=== PATIENT | male | born 1985 | race Caucasian/White ===

== ENCOUNTER 2016-08-02 10:56 | Observation (INO) | payer OTHER ==
[~2016-08-02] VITALS: Ht 182.9 cm; Wt 104.3 kg
[~2016-08-02 10:56] MED LIST: ASPI325T8 PO; CARV3.12 PO; DILT120C2 PO; FAMO-63 PO; HYDR25TA PO
[2016-08-02] MEDS ORDERED: NITROGLYCERIN SUBLINGUAL 0.4 MG BOTTLE OF 25. SL PRN (11:00)
[2016-08-02] MEDS ORDERED: MORPHINE SULFATE 2 MG/ML DISP.SYRIN. IV/SQ PRN (11:00)
--- NOTE | 2016-08-02 11:01 | PHYS DOC ---
Adult General HPI HPI Patient is a 31 year old who presents with chest discomfort. He states this all started a few days ago when he had strep throat back to back and then yesterday was seen by [facility] he thought he had pneumonia per minute Levaquin, Tessalon Perles and albuterol inhaler. He states overnight his symptoms got worse. He states he has a burning sensation in his chest and he's having palpitations that occur about every 25 beats were hurts. He did also feels nauseated. He denies any shortness of breath fevers or chills. He has a past medical history of aortic aneurysm with stent repair and open heart surgery. He also has a history of A. fib and is on Procardia and followed by Dr. Caba. Review of Systems Review of Systems Constitutional: Denies fever or chills [] Eyes: Denies change in visual acuity, redness, or eye pain [] HENT: Denies nasal congestion or sore throat [] Respiratory: Denies cough or shortness of breath [] Cardiovascular: No additional information not addressed in HPI [] GI: Denies abdominal pain, nausea, vomiting, bloody stools or diarrhea [] : Denies dysuria or hematuria [] Musculoskeletal: Denies back pain or joint pain [] Integument: Denies rash or skin lesions [] Neurologic: Denies headache, focal weakness or sensory changes [] Endocrine: Denies polyuria or polydipsia [] Current Medications Current Medications Current Medications Medications (Trade) Dose Ordered Sig/Iker Start Time Stop Time Status Last Admin Dose Admin Fentanyl Citrate (Fentanyl 2ml Vial) 50 mcg PRN Q1HR PRN 08/02/16 14:30 08/03/16 14:29 Iohexol (Omnipaque 300 Mg/ml) 75 ml 1X ONCE 08/02/16 14:30 08/02/16 14:31 DC 08/02/16 14:33 75 ML Morphine Sulfate 2 mg PRN Q15MIN PRN 08/02/16 11:00 08/03/16 10:59 UNV Nitroglycerin (Nitrostat) 0.4 mg PRN Q5MIN PRN 08/02/16 11:00 08/03/16 10:59 08/02/16 13:28 0.4 MG Ondansetron HCl (Zofran) 4 mg PRN Q8HRS PRN 08/02/16 14:30 08/03/16 14:29 Allergies Allergies Allergies Coded Allergies Type Severity Reaction Last Updated Verified morphine Allergy Intermediate 08/02/16 Yes Physical Exam Physical Exam Constitutional: Well developed, well nourished, no acute distress, non-toxic appearance. [] HENT: Normocephalic, atraumatic, bilateral external ears normal, oropharynx moist, no oral exudates, nose normal. [] Eyes: PERRLA, EOMI, conjunctiva normal, no discharge. [] Neck: Normal range of motion, no tenderness, supple, no stridor. [] Cardiovascular:Heart rate regular rhythm, no murmur [] Lungs & Thorax: Bilateral breath sounds clear to auscultation [] Abdomen: Bowel sounds normal, soft, no tenderness, no masses, no pulsatile masses. [] Skin: Warm, dry, no erythema, no rash. [] Back: No tenderness, no CVA tenderness. [] Extremities: No tenderness, no cyanosis, no clubbing, ROM intact, no edema. [] Neurologic: Alert and oriented X 3, normal motor function, normal sensory function, no focal deficits noted. [] Psychologic: Affect normal, judgement normal, mood normal. [] Current Patient Data Vital Signs Vital Signs Date Time Temp Pulse Resp B/P (MAP) Pulse Ox O2 Delivery O2 Flow Rate FiO2 08/02/16 14:10 81 12 109/76 (87) 97 Room Air 08/02/16 13:42 98.1 98.1 Lab Values Laboratory Tests Test 08/02/16 11:20 08/02/16 13:12 White Blood Count 10.5 x10^3/uL (4.0-11.0) Red Blood Count 5.12 x10^6/uL (4.30-5.70) Hemoglobin 14.5 g/dL (13.0-17.5) Hematocrit 42.4 % (39.0-53.0) Mean Corpuscular Volume 83 fL (79-100) Mean Corpuscular Hemoglobin 28 pg (25-35) Mean Corpuscular Hemoglobin Concent 34 g/dL (31-37) Red Cell Distribution Width 12.7 % (11.5-14.5) Platelet Count 216 x10^3/uL (140-400) Neutrophils (%) (Auto) 78 % (31-73) H Lymphocytes (%) (Auto) 15 % (24-48) L Monocytes (%) (Auto) 6 % (0-9) Eosinophils (%) (Auto) 0 % (0-3) Basophils (%) (Auto) 0 % (0-3) Neutrophils # (Auto) 8.2 x10^3uL (1.8-7.7) H Lymphocytes # (Auto) 1.6 x10^3/uL (1.0-4.8) Monocytes # (Auto) 0.6 x10^3/uL (0.0-1.1) Eosinophils # (Auto) 0.0 x10^3/uL (0.0-0.7) Basophils # (Auto) 0.0 x10^3/uL (0.0-0.2) Prothrombin Time 12.7 SEC (11.7-14.0) Prothrombin Time INR 1.0 (0.8-1.1) Sodium Level 138 mmol/L (136-145) Potassium Level 4.2 mmol/L (3.5-5.1) Chloride Level 103 mmol/L (98-107) Carbon Dioxide Level 26 mmol/L (21-32) Anion Gap 9 (6-14) Blood Urea Nitrogen 10 mg/dL (8-26) Creatinine 0.8 mg/dL (0.7-1.3) Estimated GFR (Cockcroft-Gault) 112.8 Glucose Level 108 mg/dL (70-99) H Calcium Level 9.3 mg/dL (8.5-10.1) Magnesium Level 1.9 mg/dL (1.8-2.4) Total Bilirubin 1.0 mg/dL (0.2-1.0) Direct Bilirubin 0.2 mg/dL (0.0-0.2) Aspartate Amino Transferase (AST) 10 U/L (15-37) L Alanine Aminotransferase (ALT) 21 U/L (16-63) Alkaline Phosphatase 75 U/L (46-116) Creatine Kinase 33 U/L (39-308) L Creatine Kinase MB (Mass) < 0.5 ng/mL (0.0-3.6) Creatine Kinase MB Relative Index % (0-4) Troponin I Quantitative < 0.017 ng/mL (0.000-0.055) SB-Yfx-P-Type Natriuretic Peptide 233 pg/mL (0-124) H Total Protein 7.4 g/dL (6.4-8.2) Albumin 3.9 g/dL (3.4-5.0) Lipase 84 U/L (73-393) Urine Color Yellow Urine Clarity Clear Urine pH 7.0 Urine Specific [place] 1.015 Urine Protein Negative mg/dL (NEG-TRACE) Urine Glucose (UA) Negative mg/dL (NEG) Urine Ketones (Stick) Negative mg/dL (NEG) Urine Blood Negative (NEG) Urine Nitrite Negative (NEG) Urine Bilirubin Negative (NEG) Urine Urobilinogen Dipstick 0.2 mg/dL (0.2 mg/dL) Urine Leukocyte Esterase Negative (NEG) Urine RBC 0 /HPF (0-2) Urine WBC 0 /HPF (0-4) Urine Squamous Epithelial Cells None /LPF Urine Bacteria 0 /HPF (0-FEW) Urine Mucus Slight /LPF Urine Opiates Screen Neg (NEG) Urine Methadone Screen Neg (NEG) Urine Barbiturates Neg (NEG) Urine Phencyclidine Screen Neg (NEG) Urine Amphetamine/Methamphetamine Neg (NEG) Urine Benzodiazepines Screen Neg (NEG) Urine Cocaine Screen Neg (NEG) Urine Cannabinoids Screen Neg (NEG) Urine Ethyl Alcohol Neg (NEG) Laboratory Tests 08/02/16 11:20 Laboratory Tests 08/02/16 11:20 EKG EKG EKG shows sinus rhythm with rate of [address] elevations, normal axis, occasional PAC noted. Radiology/Procedures Radiology/Procedures [facility] [address] [place] [address] IMAGING REPORT Signed PATIENT: MAMTA SOFIA ACCOUNT: [id number] : 1985 LOCATION: ER AGE: 31 SEX: M EXAM STATUS: PRE ER ORD. PHYSICIAN: JUAREZ POLANCO MD REASON: chest pain PROCEDURE: PORTABLE CHEST 1V Indication: Chest pain. Time of exam 11 0 7:00 AM The heart size is normal. There are changes of median sternotomy. The lungs are clear. The pulmonary vascularity is normal. No infiltrate or failure is detected. No effusion or pneumothorax is identified. Impression: No acute cardiopulmonary process is detected. DICTATED and SIGNED BY: GAURANG SALGADO MD DATE: 08/02/16 1108 CC: KISHA DIAZ DO; JUAREZ POLANCO MD ~ Impressions: Chest pain Course & Med Decision Making Course & Med Decision Making Pertinent Labs and Imaging studies reviewed. (See chart for details) Patient EKG and labs don't show any acute abdomen. CT Angio is pending at this time, to rule out PE. He is being admitted to the hospitalist with interim orders written and consult to cardiology has been placed. Spoke with June. Khan Disclaimer Bill Disclaimer This electronic medical record was generated, in whole or in part, using a voice recognition dictation system. Departure Departure Impression: Primary Impression: Chest pain Disposition: ADMITTED INPATIENT Admitting Physician: Briseida Moore Condition: STABLE Referrals: KISHA DIAZ DO (PCP) Problem Qualifiers Primary Impression: Chest pain Chest pain type: unspecified Qualified Codes: R07.9 - Chest pain, unspecified JUAREZ POLANCO MD Aug 02, 2016 11:01
--- NOTE | 2016-08-02 11:12 | RAD ---
Indication: Chest pain. Time of exam 11 0 7:00 AM The heart size is normal. There are changes of median sternotomy. The lungs are clear. The pulmonary vascularity is normal. No infiltrate or failure is detected. No effusion or pneumothorax is identified. Impression: No acute cardiopulmonary process is detected.
[2016-08-02 11:37] LABS: BASO % 0 % (0-3); EOS % 0 % (0-3); HEMATOCRIT 42.4 % (39.0-53.0); HEMOGLOBIN 14.5 g/dL (13.0-17.5); LYMPH # 1.6 x10^3/uL (1.0-4.8); LYMPH % 15 % (24-48); MEAN CORPUSCULAR HEMOGLOBIN 28 pg (25-35); MEAN CORPUSCULAR HGB CONC 34 g/dL (31-37); MEAN CORPUSCULAR VOLUME 83 fL (79-100); MONO % 6 % (0-9); NEUT % 78 % (31-73); PLATELET COUNT 216 x10^3/uL (140-400); RED BLOOD COUNT 5.12 x10^6/uL (4.30-5.70); RED CELL DISTRIBUTION WIDTH 12.7 % (11.5-14.5); WHITE BLOOD COUNT 10.5 x10^3/uL (4.0-11.0)
--- NOTE | 2016-08-02 11:48 | EKG ---
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
[2016-08-02 11:50] LABS: CALCIUM 9.3 mg/dL (8.5-10.1); CREATININE 0.8 mg/dL (0.7-1.3); GFR 112.8; POTASSIUM 4.2 mmol/L (3.5-5.1)
[2016-08-02 11:52] LABS: PROTHROMBIN TIME PATIENT 12.7 SEC (11.7-14.0)
[2016-08-02 11:55] LABS: ALBUMIN 3.9 g/dL (3.4-5.0); DIRECT BILIRUBIN 0.2 mg/dL (0.0-0.2); MAGNESIUM 1.9 mg/dL (1.8-2.4); TOTAL PROTEIN 7.4 g/dL (6.4-8.2)
[2016-08-02 12:06] LABS: CKMB MASS < 0.5 ng/mL (0.0-3.6); CREATINE KINASE 33 U/L (39-308)
[2016-08-02] MEDS ORDERED: ONDANSETRON PF 4 MG/2 ML VIAL. IV ONE (13:00)
[2016-08-02 13:24] LABS: BILIRUBIN,URINE NEGATIVE (NEG); GLUCOSE,URINE NEGATIVE (NEG); NITRITE,URINE NEGATIVE (NEG); PROTEIN,URINE NEGATIVE (NEG-TRACE); UROBILINOGEN,URINE 0.2 mg/dL (0.2 mg/dL)
[2016-08-02 13:27] LABS: BARBITURATES NEG (NEG); BENZODIAZEPINES NEG (NEG); CANNABINOIDS NEG (NEG); COCAINE NEG (NEG); METHADONE NEG (NEG); OPIATES NEG (NEG); PHENCYCLIDINE NEG (NEG)
[2016-08-02 13:35] LABS: BACTERIA,URINE 0 /HPF (0-FEW); RBC,URINE 0 /HPF (0-2); WBC,URINE 0 /HPF (0-4)
[2016-08-02] MEDS: fentaNYL PF VIAL 100 MCG/2 ML VIAL IV PRN ×4 (14:05→20:12)
[2016-08-02] MEDS ORDERED: IOHEXOL 300 MG/ML 75 ML VIAL IV ONE (14:30)
--- NOTE | 2016-08-02 14:36 | ACF ---
Admit Criteria Forms Admit Criteria Forms Admit Criteria Forms CHEST PAIN Clinical Indications for Admission to Inpatient Care (Place 'X' for any and all applicable criteria): Admission is indicated for chest pain and ANY ONE of the following(1)(2)(3)(4)(5 ): [ ]I. Angina with acute coronary syndrome (Also use Myocardial Infarction or Angina guideline) [ ]II. Hemodynamic instability [ ]III. Angina needing acute intervention as indicated by ALL of the following( 11)(12): [ ]a) Unstable angina is present as indicated by angina that is ANY ONE of the following: [ ]i) New onset [ ]ii) Nocturnal [ ]iii) Prolonged at rest [ ]iv) Progressive [ ]b) Angina warrants acute intervention as indicated by ANY ONE of the following: [ ]i) Recurrent angina (e.g, not responding as previously to treatment) [ ]ii) Angina at rest or with low-level activities despite initial medical therapy [ ]iii) New or presumably new ST-segment depression on ECG [ ]iv) Signs or symptoms of heart failure (eg, dyspnea, pulmonary edema) [ ]v) New or worsening mitral regurgitation [ ]vi) Hemodynamic instability [ ]vii) Dangerous arrhythmia (eg, sustained ventricular tachycardia) [ ]viii) History of percutaneous coronary intervention within 6 months [ ]ix) History of coronary artery bypass graft surgery [ ]x) KATHLEEN risk score of 2 or greater[A] [ ]xi) History of Diabetes(14) [ ]xii) High-risk cardiac ischemia findings on noninvasive testing (e.g, echocardiogram, treadmill testing, nuclear scan) [ ]xiii) Chronic renal insufficiency (ie, estimated GFR less than 60 mL/min/1.732m) [ ]xiv) Left ventricular ejection fraction less than 40% [X]IV. Evidence of MT (eg, cardiac biomarkers positive, ST-segment elevation on ECG) also use Myocardial Infarction Criteria Form. [ ]V. Pulmonary edema [ ]. Respiratory distress [ ]VII. Chest pain indicative of serious diagnosis other than coronary artery disease (eg, aortic dissection) [ ]VIII. Contraindications and/or Inappropriate clinical situations for Observational Care in patients with Chest Pain, when ANY ONE of the following is required: [ ]a) Patient with risk factor for pulmonary embolism, acute coronary syndrome and myocardial infarction (18) [ ]b) Patient with Pulmonary embolism require an average LOS of 4.3 days, therefore emergency department observation management is inappropriate 18,23 [ ]c) Painful condition/s in the elderly, have the highest rate of recidivism after emergency department observation management (10.8%) 20,21,22 [ ]d) Elevated cardiac biomarker requires intensive and exhaustive care (19) [ ]IX. General contraindications and/or Inappropriate clinical situations for Observational Care in patients with Chest Pain, when ANY ONE of the following is required: [ ]a) Prediction of prolongation of LOS based on ANY ONE of the following may be considered as a contraindication for observational care 2, 3, 4, 5, 6, 7, 8, 9, 10, 11 [ ]i) Age > 65 yrs. [ ]ii) Patient arriving by ambulance [ ]iii) Patient with high acuity [ ]iv) Patient requiring vital sign monitoring [ ]v) Patient on IV medication [ ]b) Systolic blood pressures 180mmHg 3,12 [ ]c) Patient with altered mental status including delirium and other alteration of consciousness, (3) [ ]d) Patient whose discharge disposition will be to a correction home or rehabilitation home should not be managed in Emergency Department Observation Unit. CMS rule requires 3 days hospital stay before such placement. 3,13 [ ]e) Patient with failure to thrive due to broad array of etiologies 3,16,17 [ ]f) Inability to ambulate 3,14 Extended stay beyond goal length of stay may be needed for (1)(28): [ ]a) Specific condition diagnosed after evaluation (eg, pulmonary embolism, aortic dissection) [ ]b) Unstable angina [ ]c) Continued suspicion of acute coronary syndrome with inability to complete needed cardiac evaluation (eg, patient clinically unable to undergo stress testing) [ ]d) Myocardial infarction (Contents from ANGINA and CHEST PAIN clinical indications for admission to inpatient care have been integrated in this form) The original [employer] content created by [employer] has been revised. The portions of the content which have been revised are identified through the use of italic text or in bold, and [employer] [facility] [employer] has neither reviewed nor approved the modified material. All other unmodified content is copyright [employer]. Please see references footnoted in the original [employer] edition 2016 NEHA TANNER Aug 02, 2016 14:36
--- NOTE | 2016-08-02 14:44 | PDOC2 ---
JORGE LUIS DANIELSON RADIOLOGY THERAPIST 08/02/16 1444: CARDIAC CONSULT DATE OF CONSULT Date of Consult DATE: 08/02/16 TIME: 14:36 REASON FOR CONSULT Reason for Consult: Chest pain REFERRING PHYSICIAN Referring Physician: Surjit SOURCE Source: Chart review, Patient HISTORY OF PRESENT ILLNESS HISTORY OF PRESENT ILLNESS This is a pleasant 31 yo male admitted for complains of chest pain. Reports that late June she was noted with positive strep throat, with fever at [facility]. She was given about 10 days worth of PCN and only took 6 days of it since he felt better. He then went to his PCP because his symptoms were back and was having fever as well. His strep test was negative at that time but given his bicuspid valve and hx of aortic root/valve repair, he was given bicilin shot. It was noted that steroid was recommended at that time but did not get started or nonen was filled accdg to him. In the last few days he has been having more skipping beats and also has been having frequent coughing to a point that when he coughs or take a deep breath breath it hurts his anterior chest and starts in the middle and fans out.He then went back to [facility] and was given cough medicine and levaquin. It was burning sensation and actually was a little better she he got started on Tessalon pearls. Overnight he has been feeling anxious, verbalized some chills in the last few days but no documented fever. This morning he woke up and felt lightheaded. He also has been having some nausea. He also verbalized that his chest hurts when has the skipping beats. Positional changes does not help. To date no analgesic has been taken except when in ED. Currently he is quite anxious and asking for some medications for complete relief of his discomfort. Denies any orthopnea, SOA. He ahs been complaint with his ASA and cardizem. He is significant for PAFIB as well noted last yr and has been seen in our office as well as with EP. PAST MEDICAL HISTORY Past Medical History Cardiovascular: aortic root dilatation, mild with bicuspid valve, AFIB Pulmonary: No pertinent hx CENTRAL NERVOUS SYSTEM: Other (No pertinent history) GI: GERD Heme/Onc: No pertinent hx Hepatobiliary: No pertinent hx Psych: No pertinent hx Musculoskeletal: Other (denies) Rheumatologic: No pertinent hx Infectious disease: No pertinent history ENT: Recent strep throat Renal/: No pertinent hx Endocrine: Thyroid nodule Dermatology: No pertinent hx PAST SURGICAL HISTORY Past Surgical History aortic root graft placement with possible , possible concomitant AV repair at that time 2002 FAMILY HISTORY Family History Coronary Artery Disease (grandmother and grandfather also with AFIB ) SOCIAL HISTORY Smoke: No ALCOHOL: none Drugs: None Lives: with Family CURRENT MEDICATIONS CURRENT MEDICATIONS Current Medications Medications (Trade) Dose Ordered Sig/Iker Route PRN Reason Start Time Stop Time Status Last Admin Dose Admin Nitroglycerin (Nitrostat) 0.4 mg PRN Q5MIN PRN SL CP RATING > 1/10 08/02/16 11:00 08/03/16 10:59 08/02/16 13:28 Ondansetron HCl (Zofran) 4 mg 1X ONCE IV 08/02/16 13:00 08/02/16 13:06 DC 08/02/16 14:03 Fentanyl Citrate (Fentanyl 2ml Vial) 50 mcg PRN Q15MIN PRN IV PAIN GREATER THAN 3/10 08/02/16 13:00 08/03/16 12:59 08/02/16 14:05 Iohexol (Omnipaque 300 Mg/ml) 75 ml 1X ONCE IV 08/02/16 14:30 08/02/16 14:31 DC 08/02/16 14:33 ALLERGIES ALLERGIES: Coded Allergies: morphine (Verified Allergy, Intermediate, 08/02/16) ROS Review of System 14 point ROS evaluated with pertinent positives noted per HPI PHYSICAL EXAM General: Alert, Oriented X3, Cooperative, mild distress HEENT: Atraumatic, Mucous membr. moist/pink Lungs: Clear to auscultation, Normal air movement Heart: Regular rate (SR with PAC), Normal S1, Normal S2, Other (diffuse systolic murmur 4/6) Abdomen: Soft, No tenderness Extremities: No cyanosis, No edema Skin: No breakdown, No significant lesion Neuro: Normal speech, Sensation intact Psych/Mental Status: Mental status NL, Other (anxious) MUSCULOSKELETAL: Full range of motion without pain VITALS VITALS Vital Signs Date Time Temp Pulse Resp B/P (MAP) Pulse Ox O2 Delivery O2 Flow Rate FiO2 08/02/16 14:10 81 12 109/76 (87) 97 Room Air 08/02/16 13:42 98.1 98.1 LABS Lab: Laboratory Tests Test 08/02/16 11:20 08/02/16 13:12 White Blood Count 10.5 x10^3/uL (4.0-11.0) Red Blood Count 5.12 x10^6/uL (4.30-5.70) Hemoglobin 14.5 g/dL (13.0-17.5) Hematocrit 42.4 % (39.0-53.0) Mean Corpuscular Volume 83 fL (79-100) Mean Corpuscular Hemoglobin 28 pg (25-35) Mean Corpuscular Hemoglobin Concent 34 g/dL (31-37) Red Cell Distribution Width 12.7 % (11.5-14.5) Platelet Count 216 x10^3/uL (140-400) Neutrophils (%) (Auto) 78 % (31-73) Lymphocytes (%) (Auto) 15 % (24-48) Monocytes (%) (Auto) 6 % (0-9) Eosinophils (%) (Auto) 0 % (0-3) Basophils (%) (Auto) 0 % (0-3) Neutrophils # (Auto) 8.2 x10^3uL (1.8-7.7) Lymphocytes # (Auto) 1.6 x10^3/uL (1.0-4.8) Monocytes # (Auto) 0.6 x10^3/uL (0.0-1.1) Eosinophils # (Auto) 0.0 x10^3/uL (0.0-0.7) Basophils # (Auto) 0.0 x10^3/uL (0.0-0.2) Prothrombin Time 12.7 SEC (11.7-14.0) Prothromb Time International Ratio 1.0 (0.8-1.1) Sodium Level 138 mmol/L (136-145) Potassium Level 4.2 mmol/L (3.5-5.1) Chloride Level 103 mmol/L (98-107) Carbon Dioxide Level 26 mmol/L (21-32) Anion Gap 9 (6-14) Blood Urea Nitrogen 10 mg/dL (8-26) Creatinine 0.8 mg/dL (0.7-1.3) Estimated GFR (Cockcroft-Gault) 112.8 Glucose Level 108 mg/dL (70-99) Calcium Level 9.3 mg/dL (8.5-10.1) Magnesium Level 1.9 mg/dL (1.8-2.4) Total Bilirubin 1.0 mg/dL (0.2-1.0) Direct Bilirubin 0.2 mg/dL (0.0-0.2) Aspartate Amino Transf (AST/SGOT) 10 U/L (15-37) Alanine Aminotransferase (ALT/SGPT) 21 U/L (16-63) Alkaline Phosphatase 75 U/L (46-116) Creatine Kinase 33 U/L (39-308) Creatine Kinase MB (Mass) < 0.5 ng/mL (0.0-3.6) Creatine Kinase MB Relative Index % (0-4) Troponin I Quantitative < 0.017 ng/mL (0.000-0.055) ZH-Vhw-C-Type Natriuretic Peptide 233 pg/mL (0-124) Total Protein 7.4 g/dL (6.4-8.2) Albumin 3.9 g/dL (3.4-5.0) Lipase 84 U/L (73-393) Urine Color Yellow Urine Clarity Clear Urine pH 7.0 Urine Specific [place] 1.015 Urine Protein Negative mg/dL (NEG-TRACE) Urine Glucose (UA) Negative mg/dL (NEG) Urine Ketones (Stick) Negative mg/dL (NEG) Urine Blood Negative (NEG) Urine Nitrite Negative (NEG) Urine Bilirubin Negative (NEG) Urine Urobilinogen Dipstick 0.2 mg/dL (0.2 mg/dL) Urine Leukocyte Esterase Negative (NEG) Urine RBC 0 /HPF (0-2) Urine WBC 0 /HPF (0-4) Urine Squamous Epithelial Cells None /LPF Urine Bacteria 0 /HPF (0-FEW) Urine Mucus Slight /LPF Urine Opiates Screen Neg (NEG) Urine Methadone Screen Neg (NEG) Urine Barbiturates Neg (NEG) Urine Phencyclidine Screen Neg (NEG) Urine Amphetamine/Methamphetamine Neg (NEG) Urine Benzodiazepines Screen Neg (NEG) Urine Cocaine Screen Neg (NEG) Urine Cannabinoids Screen Neg (NEG) Urine Ethyl Alcohol Neg (NEG) IMAGES IMAGES IMPRESSION CTA ABD/pelvis/chest - Mediastinal wires are present. There are postsurgical changes of the chest, probably indicating ascending thoracic aortic repair. - There are 2 fairly regular circumferential densities involving the ascending thoracic aorta which may be extent of radio-opaque markers of ascending thoracic aortic repair. These do not have typical appearance of aortic dissection, although small focal recommend clinical correlation. - It is thought that the [place] aortic valve is present and demonstrates calcification. - Descending thoracic aorta and abdominal aorta are without evidence of dissection. - Trace bilateral pleural effusions. - Thyroid nodule. DATE: 10/19/152047 ECHOCARDIOGRAM ECHOCARDIOGRAM <Conclusion> TTE Left ventricle systolic function is normal. The Ejection Fraction is 60-65%. There is normal LV segmental wall motion. The aortic valve is tricuspid. There is an echogenic line noted along the right and non-coronary cusp suggestive of prior repair but partial fusion cannot be excluded on this surface study. Doppler and Color Flow revealed mild aortic regurgitation. Doppler and Color Flow revealed mild mitral regurgitation. Suggest JANNETTE for further evaluation. DATE: 10/20/15 1030 <Conclusion> JANNETTE The Ejection Fraction is 60-65%. There is normal LV segmental wall motion. The aortic valve is bicuspid. There is a calcified area noted at the posterior fusion point of the bicuspid valve. Doppler and Color Flow revealed mild aortic regurgitation. There is mild valvular aortic stenosis. Peak gradient of 42 mm Hg with mean gradient of 24 mm Hg. The ascending aorta is normal in size. There is a suture line noted in the proximal ascending aorta from prior repair. DATE: 10/21/15 1237 ASSESSMENT/PLAN ASSESSMENT/PLAN 1. Atypical chest pain: DOubt ACS. initial troponin normal, EKG SR with PACs otherwise no acute changes. CTA negative for acute changes. Possible costochondritis. 2. Recent strep throat: multiple outpt clinic visit with noted initially incomplete Abx treatment then bicilin shot then recently given levaquin. Remains to have episodes of chills. 3. PAFIB: presently SR with PACs. Seen by EP 02/2016 and no recommendation for any ablation at that time 4. Presyncope: suspect anxiety induced, possible inadequate po hydration. 5. Hx of bicuspid valve/aortic dilatation with mild /AI: repair in 2002. 6. Anxiety: per PCP 7. GERD Recommendations 1. Reevaluate valves/pericardium/aortic root via TTE today. ESR. Monitor tele overnight 2. Would recommend ID consult 3. Solumedrol IV x1, Transdermal lidocaine patch to chest. PPI 4. Ibuprofen PRN 5. ECASA 81 mg and cardizem 120 mg CD (home dose). Start IVF. Problems: KEYSHAWN CABEZAS MD 08/02/162122: CARDIAC CONSULT ALLERGIES ALLERGIES: Coded Allergies: morphine (Verified Allergy, Intermediate, 08/02/16) ASSESSMENT/PLAN ASSESSMENT/PLAN Pt. seen and examined. Agree with above RESEARCH CLERK note with following changes/ comments. 31 y.o well known to me from prior admission and office. He has very atypical chest pain which he clear associates with PAC's and PVC's. BP low and therefore, unable to uptitrate meds. Will stop cardizem. Start low dose metoprol in a.m.. Give flecainide tonight and in a.m. Monitor closely for now. No need from our perspective for ID consult. Discussed with Dr. Moore. Thanks for consult. Problems: JORGE LUIS DANIELSON APRN Aug 02, 2016 14:44 KEYSHAWN CABEZAS MD Aug 02, 2016 21:23
--- NOTE | 2016-08-02 15:21 | RAD ---
Indication: Chest pain and shortness of breath. Axial imaging through the chest was performed after the administration of intravenous contrast and utilizing the CT angiography protocol. Multiplanar, 3-D and MIP reformations were also performed. Correlation is made with prior CT from 10/19/2015. Postop changes of median sternotomy are noted. The thoracic aorta appears to be stable in caliber. No dissection is identified. Central pulmonary arteries are unremarkable. No pericardial or pleural fluid is detected. No axillary lymphadenopathy is identified. No definite hilar or mediastinal lymphadenopathy is detected. No parenchymal infiltrate, nodule or mass is identified. Upper abdomen is unremarkable. Impression: Stable CT of the chest when compared with exam from 10/19/2015. No acute feature is detected. PQRS Compliance Statement: One or more of the following individualized dose reduction techniques were utilized for this examination: 1. Automated exposure control 2. Adjustment of the mA and/or kV according to patient size 3. Use of iterative reconstruction technique
[2016-08-02] MEDS ORDERED: methylPREDNISolone SOD SUCC PF 125 MG/2 ML VIAL. IV ONE (15:30)
[2016-08-02] MEDS: IBUPROFEN 400 MG TABLET. PO PRN (15:53)
[2016-08-02] MEDS: PANTOPRAZOLE 40 MG TABLET.DR. PO SCH (15:53)
[2016-08-02] MEDS: LIDOCAINE (700MG/PATCH) PATCH. TD SCH (15:54)
[2016-08-02] MEDS: ASPIRIN ENTERIC COATED 81 MG TABLET.DR. PO SCH (15:54)
[2016-08-02 16:00] VITALS: BP 104/69
[2016-08-02] MEDS ORDERED: IV NORMAL SALINE 1000ML BAG 1,000 ML IV ONE (16:00)
[2016-08-02] MEDS ORDERED: FAMOTIDINE 20 MG/2 ML VIAL IVP ONE (16:30)
--- NOTE | 2016-08-02 16:49 | PDOC1 ---
History and Physical Date of Admission Date of Admission DATE: 08/02/16 TIME: 16:47 Identification/Chief Complaint Chief Complaint chest pain Problems: Source Source: Chart review, Patient History of Present Illness History of Present Illness Mr. Pinto, is a 31 year old who presents with chest discomfort. He states this all started a few days ago when he had strep throat back to back and then yesterday was seen by [facility] he thought he had pneumonia per minute Levaquin, Tessalon Perles and albuterol inhaler. He states overnight his symptoms got worse. He states he has a burning sensation in his chest and he's having palpitations that occur about every 25 beats were hurts. He did also feels nauseated. He denies any shortness of breath fevers or chills. He has a past medical history of aortic aneurysm with stent repair and open heart surgery. He also has a history of A. fib and is on Procardia and followed by Dr. Caba. Past Medical History Cardiovascular: AFIB, Other Pulmonary: No pertinent hx CENTRAL NERVOUS SYSTEM: Other GI: No pertinent hx Heme/Onc: No pertinent hx Hepatobiliary: No pertinent hx Psych: No pertinent hx Musculoskeletal: Other Rheumatologic: No pertinent hx Infectious disease: No pertinent hx Renal/: No pertinent hx Endocrine: No pertinent hx Past Surgical History Past Surgical History: Other (aortic dissection repair 2007) Family History Family History: Coronary Artery Disease Social History Smoke: No ALCOHOL: none Drugs: None Current Problem List Problem List Problems Medical Problems: (1) Chest pain Status: Acute Problems: Current Medications Current Medications Current Medications Nitroglycerin (Nitrostat) 0.4 mg PRN Q5MIN PRN SL CP RATING > 1/10 Last administered on 08/02/16 13:28; Start 08/02/16 at 11:00; Stop 08/03/16 at 10:59 Morphine Sulfate 2 mg PRN Q15MIN PRN IV/SQ PAIN GREATER THAN 3/10; Start at 11:00; Stop 08/03/16 at 10:59; Status UNV Ondansetron HCl (Zofran) 4 mg 1X ONCE IV Last administered on 08/02/16 14:03 ; Start 08/02/16 at 13:00; Stop 08/02/16 at 13:06; Status DC Fentanyl Citrate (Fentanyl 2ml Vial) 50 mcg PRN Q15MIN PRN IV PAIN GREATER THAN 3/10 Last administered on 08/02/16 14:05; Start 08/02/16 at 13:00; Stop at 12:59 Iohexol (Omnipaque 300 Mg/ml) 75 ml 1X ONCE IV Last administered on 08/02/16 14:33; Start 08/02/16 at 14:30; Stop 08/02/16 at 14:31; Status DC Ondansetron HCl (Zofran) 4 mg PRN Q8HRS PRN IV NAUSEA/VOMITING; Start 08/02/16 at 14:30; Stop 08/03/16 at 14:29 Fentanyl Citrate (Fentanyl 2ml Vial) 50 mcg PRN Q1HR PRN IV PAIN Last administered on 08/02/16 15:52; Start 08/02/16 at 14:30; Stop 08/03/16 at 14:29 Lidocaine (Lidoderm) 1 patch DAILY TD Last administered on 08/02/16 15:54; Start 08/02/16 at 16:00 Methylprednisolone Sodium Succinate (SOLU-Medrol 125MG VIAL) 125 mg 1X ONCE IV Last administered on 08/02/16 15:54; Start 08/02/16 at 15:30; Stop 08/02/16 at 15:33; Status DC Diltiazem HCl (Cardizem 24hr Cd) 120 mg DAILY PO ; Start 08/02/16 at 16:00 Pantoprazole Sodium (Protonix) 40 mg DAILYAC PO Last administered on 08/02/16 15:53; Start 08/02/16 at 16:30 Aspirin (Ecotrin) 81 mg DAILYWBKFT PO Last administered on 08/02/16 15:54; Start 08/02/16 at 16:00 Ibuprofen (Motrin) 400 mg PRN Q6HRS PRN PO INFLAMMATION Last administered on 15:53; Start 08/02/16 at 15:30 Sodium Chloride 1,000 ml @ 75 mls/hr 1X ONCE IV ; Start 08/02/16 at 16:00; Stop 08/03/16 at 05:19 Famotidine (Pepcid) 20 mg 1X ONCE IVP ; Start 08/02/16 at 16:30; Stop 08/02/16 at 16:31; Status DC Active Scripts Active Reported Pepcid (Famotidine) 20 Mg Tablet 20 Mg PO BID Cardizem Cd (Diltiazem Hcl) 120 Mg Cap.er.24h 120 Mg PO DAILY Aspirin 325 Mg Tablet 1 Tab PO DAILY Allergies Allergies: Coded Allergies: morphine (Verified Allergy, Intermediate, 08/02/16) ROS General: No: Chills, Night Sweats, Fatigue, Malaise, Appetite, Other PSYCHOLOGICAL ROS: YES: Anxiety, Hostility, Irritablity, Obsessive thoughts, No: Behavioral Disorder, Concentration difficultie, Decreased libido, Depression, Disorientation, Hallucinations, Memory difficulties, Mood Swings Eyes: No Blurry vision, No Decreased vision, No Double vision, No Dry eyes, No Excessive tearing, No Eye Pain, No Itchy Eyes, No Loss of vision, No Photophobia , No Scotomata, No Uses contacts, No Uses glasses, No Other HEENT: No: Heacaches, Visual Changes, Hearing change, Nasal congestion, Nasal discharge, Oral lesions, Sinus pain, Sore Throat, Epistaxis, Sneezing, Snoring, Tinnitus, Vertigo, Vocal changes, Other Respiratory: No: Cough, Hemoptysis, Orthopnea, Pleuritic Pain, Shortness of breath, SOB with excertion, Sputum Changes, Stridor, Tachypnea, Wheezing, Other Cardiovascular: yes Chest Pain, No Palpitations, No Orthopnea, No Paroxysmal Noc. Dyspnea, No Edema, No Lt Headedness, No Other Gastrointestinal: No Nausea, No Vomiting, No Abdominal Pain, No Diarrhea, No Constipation, No Melena, No Hematochezia, No Other Genitourinary: No Dysuria, No Frequency, No Incontinence, No Hematuria, No Retention, No Discharge, No Urgency, No Pain, No Flank Pain, No Other, No , No , No , No , No , No , No Musculoskeletal: No Gait Disturbance, No Joint Pain, No Joint Stiffness, No Joint Swelling, No Muscle Pain, No Muscular Weakness, No Pain In:, No Swelling In:, No Other Neurological: No Behavorial Changes, No Bowel/Bladder ControlChng, No Confusion , No Dizziness, No Gait Disturbance, No Headaches, No Impaired Coord/balance, No Memory Loss, No Numbness/Tingling, No Seizures, No Speech Problems, No Tremors, No Visual Changes, No Weakness, No Other Skin: No Dry Skin, No Eczema, No Hair Changes, No Lumps, No Mole Changes, No Mottling, No Nail Changes, No Pruritus, No Rash, No Skin Lesion Changes, No Other, No Acne Physical Exam Physical Exam tele sinus w/ occassional bigeminy General: Alert, Oriented X3, Cooperative HEENT: PERRLA Lungs: Clear to auscultation Heart: S1S2, irregularly irregular, other Abdomen: Normal bowel sounds, Soft Rectal Exam: not examined Extremities: No clubbing, No edema, Normal pulses Skin: No rashes, No breakdown, No significant lesion Neuro: Normal speech, Normal tone, Sensation intact Psych/Mental Status: Mental status NL, Mood NL Vitals Vitals Vital Signs Date Time Temp Pulse Resp B/P (MAP) Pulse Ox O2 Delivery O2 Flow Rate FiO2 08/02/16 16:00 97.9 72 18 104/69 (81) 72 Room Air 97.9 Labs Labs Laboratory Tests Test 08/02/16 11:20 08/02/16 13:12 White Blood Count 10.5 x10^3/uL (4.0-11.0) Red Blood Count 5.12 x10^6/uL (4.30-5.70) Hemoglobin 14.5 g/dL (13.0-17.5) Hematocrit 42.4 % (39.0-53.0) Mean Corpuscular Volume 83 fL (79-100) Mean Corpuscular Hemoglobin 28 pg (25-35) Mean Corpuscular Hemoglobin Concent 34 g/dL (31-37) Red Cell Distribution Width 12.7 % (11.5-14.5) Platelet Count 216 x10^3/uL (140-400) Neutrophils (%) (Auto) 78 % (31-73) Lymphocytes (%) (Auto) 15 % (24-48) Monocytes (%) (Auto) 6 % (0-9) Eosinophils (%) (Auto) 0 % (0-3) Basophils (%) (Auto) 0 % (0-3) Neutrophils # (Auto) 8.2 x10^3uL (1.8-7.7) Lymphocytes # (Auto) 1.6 x10^3/uL (1.0-4.8) Monocytes # (Auto) 0.6 x10^3/uL (0.0-1.1) Eosinophils # (Auto) 0.0 x10^3/uL (0.0-0.7) Basophils # (Auto) 0.0 x10^3/uL (0.0-0.2) Erythrocyte Sedimentation Rate 2 (0-15) Prothrombin Time 12.7 SEC (11.7-14.0) Prothromb Time International Ratio 1.0 (0.8-1.1) Sodium Level 138 mmol/L (136-145) Potassium Level 4.2 mmol/L (3.5-5.1) Chloride Level 103 mmol/L (98-107) Carbon Dioxide Level 26 mmol/L (21-32) Anion Gap 9 (6-14) Blood Urea Nitrogen 10 mg/dL (8-26) Creatinine 0.8 mg/dL (0.7-1.3) Estimated GFR (Cockcroft-Gault) 112.8 Glucose Level 108 mg/dL (70-99) Calcium Level 9.3 mg/dL (8.5-10.1) Magnesium Level 1.9 mg/dL (1.8-2.4) Total Bilirubin 1.0 mg/dL (0.2-1.0) Direct Bilirubin 0.2 mg/dL (0.0-0.2) Aspartate Amino Transf (AST/SGOT) 10 U/L (15-37) Alanine Aminotransferase (ALT/SGPT) 21 U/L (16-63) Alkaline Phosphatase 75 U/L (46-116) Creatine Kinase 33 U/L (39-308) Creatine Kinase MB (Mass) < 0.5 ng/mL (0.0-3.6) Creatine Kinase MB Relative Index % (0-4) Troponin I Quantitative < 0.017 ng/mL (0.000-0.055) KA-Res-U-Type Natriuretic Peptide 233 pg/mL (0-124) Total Protein 7.4 g/dL (6.4-8.2) Albumin 3.9 g/dL (3.4-5.0) Lipase 84 U/L (73-393) Urine Color Yellow Urine Clarity Clear Urine pH 7.0 Urine Specific [place] 1.015 Urine Protein Negative mg/dL (NEG-TRACE) Urine Glucose (UA) Negative mg/dL (NEG) Urine Ketones (Stick) Negative mg/dL (NEG) Urine Blood Negative (NEG) Urine Nitrite Negative (NEG) Urine Bilirubin Negative (NEG) Urine Urobilinogen Dipstick 0.2 mg/dL (0.2 mg/dL) Urine Leukocyte Esterase Negative (NEG) Urine RBC 0 /HPF (0-2) Urine WBC 0 /HPF (0-4) Urine Squamous Epithelial Cells None /LPF Urine Bacteria 0 /HPF (0-FEW) Urine Mucus Slight /LPF Urine Opiates Screen Neg (NEG) Urine Methadone Screen Neg (NEG) Urine Barbiturates Neg (NEG) Urine Phencyclidine Screen Neg (NEG) Urine Amphetamine/Methamphetamine Neg (NEG) Urine Benzodiazepines Screen Neg (NEG) Urine Cocaine Screen Neg (NEG) Urine Cannabinoids Screen Neg (NEG) Urine Ethyl Alcohol Neg (NEG) Laboratory Tests Test 08/02/16 11:20 08/02/16 13:12 White Blood Count 10.5 x10^3/uL (4.0-11.0) Red Blood Count 5.12 x10^6/uL (4.30-5.70) Hemoglobin 14.5 g/dL (13.0-17.5) Hematocrit 42.4 % (39.0-53.0) Mean Corpuscular Volume 83 fL (79-100) Mean Corpuscular Hemoglobin 28 pg (25-35) Mean Corpuscular Hemoglobin Concent 34 g/dL (31-37) Red Cell Distribution Width 12.7 % (11.5-14.5) Platelet Count 216 x10^3/uL (140-400) Neutrophils (%) (Auto) 78 % (31-73) Lymphocytes (%) (Auto) 15 % (24-48) Monocytes (%) (Auto) 6 % (0-9) Eosinophils (%) (Auto) 0 % (0-3) Basophils (%) (Auto) 0 % (0-3) Neutrophils # (Auto) 8.2 x10^3uL (1.8-7.7) Lymphocytes # (Auto) 1.6 x10^3/uL (1.0-4.8) Monocytes # (Auto) 0.6 x10^3/uL (0.0-1.1) Eosinophils # (Auto) 0.0 x10^3/uL (0.0-0.7) Basophils # (Auto) 0.0 x10^3/uL (0.0-0.2) Erythrocyte Sedimentation Rate 2 (0-15) Prothrombin Time 12.7 SEC (11.7-14.0) Prothromb Time International Ratio 1.0 (0.8-1.1) Sodium Level 138 mmol/L (136-145) Potassium Level 4.2 mmol/L (3.5-5.1) Chloride Level 103 mmol/L (98-107) Carbon Dioxide Level 26 mmol/L (21-32) Anion Gap 9 (6-14) Blood Urea Nitrogen 10 mg/dL (8-26) Creatinine 0.8 mg/dL (0.7-1.3) Estimated GFR (Cockcroft-Gault) 112.8 Glucose Level 108 mg/dL (70-99) Calcium Level 9.3 mg/dL (8.5-10.1) Magnesium Level 1.9 mg/dL (1.8-2.4) Total Bilirubin 1.0 mg/dL (0.2-1.0) Direct Bilirubin 0.2 mg/dL (0.0-0.2) Aspartate Amino Transf (AST/SGOT) 10 U/L (15-37) Alanine Aminotransferase (ALT/SGPT) 21 U/L (16-63) Alkaline Phosphatase 75 U/L (46-116) Creatine Kinase 33 U/L (39-308) Creatine Kinase MB (Mass) < 0.5 ng/mL (0.0-3.6) Creatine Kinase MB Relative Index % (0-4) Troponin I Quantitative < 0.017 ng/mL (0.000-0.055) GU-Hny-O-Type Natriuretic Peptide 233 pg/mL (0-124) Total Protein 7.4 g/dL (6.4-8.2) Albumin 3.9 g/dL (3.4-5.0) Lipase 84 U/L (73-393) Urine Color Yellow Urine Clarity Clear Urine pH 7.0 Urine Specific [place] 1.015 Urine Protein Negative mg/dL (NEG-TRACE) Urine Glucose (UA) Negative mg/dL (NEG) Urine Ketones (Stick) Negative mg/dL (NEG) Urine Blood Negative (NEG) Urine Nitrite Negative (NEG) Urine Bilirubin Negative (NEG) Urine Urobilinogen Dipstick 0.2 mg/dL (0.2 mg/dL) Urine Leukocyte Esterase Negative (NEG) Urine RBC 0 /HPF (0-2) Urine WBC 0 /HPF (0-4) Urine Squamous Epithelial Cells None /LPF Urine Bacteria 0 /HPF (0-FEW) Urine Mucus Slight /LPF Urine Opiates Screen Neg (NEG) Urine Methadone Screen Neg (NEG) Urine Barbiturates Neg (NEG) Urine Phencyclidine Screen Neg (NEG) Urine Amphetamine/Methamphetamine Neg (NEG) Urine Benzodiazepines Screen Neg (NEG) Urine Cocaine Screen Neg (NEG) Urine Cannabinoids Screen Neg (NEG) Urine Ethyl Alcohol Neg (NEG) VTE Prophylaxis Ordered VTE Prophylaxis Devices: No VTE Pharmacological Prophylaxi: Yes Assessment/Plan Assessment/Plan chest pain, anginal bigeminal beats in EKG, otherwise sinus CV eval, on cardizem, history of Afib RVR admit last year, oct Hx aortic dissection, open surg 2007 at [facility] anxiety, recent job stress, higher irritability, would like to try PO meds his is worried about his irritability, anxiety, obesity, BMI 31 WARREN HERNANDEZ MD Aug 02, 2016 16:49
[2016-08-02 19:24] VITALS: BP 109/50
[2016-08-02] MEDS: ONDANSETRON PF 4 MG/2 ML VIAL. IV PRN (21:02)
[2016-08-02] MEDS: FLECAINIDE ACETATE 50 MG TABLET. PO SCH (21:55)
[2016-08-02 22:49] VITALS: BP 109/62
[2016-08-03] MEDS: fentaNYL PF VIAL 100 MCG/2 ML VIAL IV PRN ×4 (00:08→11:01)
[2016-08-03] MEDS: LORazepam 1 MG TABLET PO PRN ×2 (00:11→06:16)
[2016-08-03 03:00] VITALS: BP 119/72
[2016-08-03 05:01] LABS: BASO % 0 % (0-3); EOS % 0 % (0-3); HEMATOCRIT 43.6 % (39.0-53.0); HEMOGLOBIN 14.5 g/dL (13.0-17.5); LYMPH % 9 % (24-48); MEAN CORPUSCULAR HEMOGLOBIN 28 pg (25-35); MEAN CORPUSCULAR HGB CONC 33 g/dL (31-37); MEAN CORPUSCULAR VOLUME 84 fL (79-100); MONO % 1 % (0-9); NEUT % 89 % (31-73); PLATELET COUNT 233 x10^3/uL (140-400); RED CELL DISTRIBUTION WIDTH 12.5 % (11.5-14.5)
[2016-08-03 05:15] LABS: CALCIUM 9.3 mg/dL (8.5-10.1); CREATININE 0.9 mg/dL (0.7-1.3); GFR 98.4; POTASSIUM 4.3 mmol/L (3.5-5.1)
[2016-08-03] MEDS: ONDANSETRON PF 4 MG/2 ML VIAL. IV PRN (06:10)
[2016-08-03 07:00] VITALS: BP 109/60
[2016-08-03 09:57] LABS: PLT ESTIMATE ADEQUATE (ADEQUATE)
[2016-08-03] MEDS: ASPIRIN ENTERIC COATED 81 MG TABLET.DR. PO SCH (09:59)
[2016-08-03] MEDS: PANTOPRAZOLE 40 MG TABLET.DR. PO SCH (10:00)
[2016-08-03] MEDS: FLECAINIDE ACETATE 50 MG TABLET. PO SCH ×2 (10:01→21:00)
[2016-08-03] MEDS: LIDOCAINE (700MG/PATCH) PATCH. TD SCH (10:02)
[2016-08-03] MEDS: METOPROLOL TART IMMED RELEASE 25 MG TABLET. PO SCH ×2 (10:03→20:59)
[2016-08-03] MEDS: IBUPROFEN 400 MG TABLET. PO PRN ×2 (10:14→17:57)
[2016-08-03] MEDS ORDERED: FLECAINIDE ACETATE 50 MG TABLET. PO SCH (10:15)
[2016-08-03] MEDS ORDERED: LORA0.5T96 PO (10:20)
[2016-08-03] MEDS ORDERED: METO25TA4 PO (10:20)
--- NOTE | 2016-08-03 10:28 | PDOC ---
Infectious Disease Note ROS ROS Vital Sign Vital Signs Vital Signs Date Time Temp Pulse Resp B/P (MAP) Pulse Ox O2 Delivery O2 Flow Rate FiO2 08/03/16 07:00 96.4 58 18 109/60 (76) 94 Room Air 96.4 Labs Lab Laboratory Tests Test 08/02/16 11:20 08/02/16 13:12 08/02/16 20:30 08/03/16 03:10 White Blood Count 10.5 x10^3/uL (4.0-11.0) Red Blood Count 5.12 x10^6/uL (4.30-5.70) Hemoglobin 14.5 g/dL (13.0-17.5) Hematocrit 42.4 % (39.0-53.0) Mean Corpuscular Volume 83 fL (79-100) Mean Corpuscular Hemoglobin 28 pg (25-35) Mean Corpuscular Hemoglobin Concent 34 g/dL (31-37) Red Cell Distribution Width 12.7 % (11.5-14.5) Platelet Count 216 x10^3/uL (140-400) Neutrophils (%) (Auto) 78 % (31-73) Lymphocytes (%) (Auto) 15 % (24-48) Monocytes (%) (Auto) 6 % (0-9) Eosinophils (%) (Auto) 0 % (0-3) Basophils (%) (Auto) 0 % (0-3) Neutrophils # (Auto) 8.2 x10^3uL (1.8-7.7) Lymphocytes # (Auto) 1.6 x10^3/uL (1.0-4.8) Monocytes # (Auto) 0.6 x10^3/uL (0.0-1.1) Eosinophils # (Auto) 0.0 x10^3/uL (0.0-0.7) Basophils # (Auto) 0.0 x10^3/uL (0.0-0.2) Erythrocyte Sedimentation Rate 2 (0-15) Prothrombin Time 12.7 SEC (11.7-14.0) Prothromb Time International Ratio 1.0 (0.8-1.1) Sodium Level 138 mmol/L (136-145) 138 mmol/L (136-145) Potassium Level 4.2 mmol/L (3.5-5.1) 4.3 mmol/L (3.5-5.1) Chloride Level 103 mmol/L (98-107) 103 mmol/L (98-107) Carbon Dioxide Level 26 mmol/L (21-32) 24 mmol/L (21-32) Anion Gap 9 (6-14) 11 (6-14) Blood Urea Nitrogen 10 mg/dL (8-26) 15 mg/dL (8-26) Creatinine 0.8 mg/dL (0.7-1.3) 0.9 mg/dL (0.7-1.3) Estimated GFR (Cockcroft-Gault) 112.8 98.4 Glucose Level 108 mg/dL (70-99) 177 mg/dL (70-99) Calcium Level 9.3 mg/dL (8.5-10.1) 9.3 mg/dL (8.5-10.1) Magnesium Level 1.9 mg/dL (1.8-2.4) Total Bilirubin 1.0 mg/dL (0.2-1.0) Direct Bilirubin 0.2 mg/dL (0.0-0.2) Aspartate Amino Transf (AST/SGOT) 10 U/L (15-37) Alanine Aminotransferase (ALT/SGPT) 21 U/L (16-63) Alkaline Phosphatase 75 U/L (46-116) Creatine Kinase 33 U/L (39-308) Creatine Kinase MB (Mass) < 0.5 ng/mL (0.0-3.6) Creatine Kinase MB Relative Index % (0-4) Troponin I Quantitative < 0.017 ng/mL (0.000-0.055) < 0.017 ng/mL (0.000-0.055) CV-Kvt-C-Type Natriuretic Peptide 233 pg/mL (0-124) Total Protein 7.4 g/dL (6.4-8.2) Albumin 3.9 g/dL (3.4-5.0) Lipase 84 U/L (73-393) Urine Color Yellow Urine Clarity Clear Urine pH 7.0 Urine Specific [place] 1.015 Urine Protein Negative mg/dL (NEG-TRACE) Urine Glucose (UA) Negative mg/dL (NEG) Urine Ketones (Stick) Negative mg/dL (NEG) Urine Blood Negative (NEG) Urine Nitrite Negative (NEG) Urine Bilirubin Negative (NEG) Urine Urobilinogen Dipstick 0.2 mg/dL (0.2 mg/dL) Urine Leukocyte Esterase Negative (NEG) Urine RBC 0 /HPF (0-2) Urine WBC 0 /HPF (0-4) Urine Squamous Epithelial Cells None /LPF Urine Bacteria 0 /HPF (0-FEW) Urine Mucus Slight /LPF Urine Opiates Screen Neg (NEG) Urine Methadone Screen Neg (NEG) Urine Barbiturates Neg (NEG) Urine Phencyclidine Screen Neg (NEG) Urine Amphetamine/Methamphetamine Neg (NEG) Urine Benzodiazepines Screen Neg (NEG) Urine Cocaine Screen Neg (NEG) Urine Cannabinoids Screen Neg (NEG) Urine Ethyl Alcohol Neg (NEG) Test 08/03/16 03:20 08/03/16 05:00 Troponin I Quantitative < 0.017 ng/mL (0.000-0.055) White Blood Count 11.0 x10^3/uL (4.0-11.0) Red Blood Count 5.20 x10^6/uL (4.30-5.70) Hemoglobin 14.5 g/dL (13.0-17.5) Hematocrit 43.6 % (39.0-53.0) Mean Corpuscular Volume 84 fL (79-100) Mean Corpuscular Hemoglobin 28 pg (25-35) Mean Corpuscular Hemoglobin Concent 33 g/dL (31-37) Red Cell Distribution Width 12.5 % (11.5-14.5) Platelet Count 233 x10^3/uL (140-400) Neutrophils (%) (Auto) 89 % (31-73) Lymphocytes (%) (Auto) 9 % (24-48) Monocytes (%) (Auto) 1 % (0-9) Eosinophils (%) (Auto) 0 % (0-3) Basophils (%) (Auto) 0 % (0-3) Neutrophils # (Auto) 9.9 x10^3uL (1.8-7.7) Lymphocytes # (Auto) 1.0 x10^3/uL (1.0-4.8) Monocytes # (Auto) 0.1 x10^3/uL (0.0-1.1) Eosinophils # (Auto) 0.0 x10^3/uL (0.0-0.7) Basophils # (Auto) 0.0 x10^3/uL (0.0-0.2) Segmented Neutrophils % 89 % (35-66) Band Neutrophils % 1 % (0-9) Lymphocytes % 10 % (24-48) Platelet Estimate Adequate (ADEQUATE) Objective Assessment Afib - likely exacerbated by Albuterol and ? Levofloxacin Recent strep throat - treated with PCN for 6 days then additional IM injection Leukocytosis - s/p steroid Atypical chest pain - better Plan Plan of Care No need for abx at this time D/w Dr. Moore D/w Thank you Dictation line not working # LONG ABRAMS MD Aug 03, 2016 10:28
--- NOTE | 2016-08-03 11:00 | PDOC ---
JORGE LUIS DANIELSON BOND WRITER 08/03/16 1100: CARDIO Progress Notes Date and Time Date of Service 08/03/2016 Time of Evaluation 1030 Subjective Subjective: No shortness of breath, No Palpitations, No Dizziness, Other (CP much better) Vitals Vitals Vital Signs Date Time Temp Pulse Resp B/P (MAP) Pulse Ox O2 Delivery O2 Flow Rate FiO2 08/03/16 10:03 64 109/60 08/03/16 07:00 96.4 18 94 Room Air 96.4 Weight Weight [ ] Input and Output Intake and Output Intake and Output 08/03/16 07:00 Intake Total 1720 ml Balance 1720 ml Intake Oral 820 ml IV Total 900 ml # Voids 3 Laboratory Labs Laboratory Tests Test 08/02/16 11:20 08/02/16 13:12 08/02/16 20:30 08/03/16 03:10 White Blood Count 10.5 x10^3/uL (4.0-11.0) Red Blood Count 5.12 x10^6/uL (4.30-5.70) Hemoglobin 14.5 g/dL (13.0-17.5) Hematocrit 42.4 % (39.0-53.0) Mean Corpuscular Volume 83 fL (79-100) Mean Corpuscular Hemoglobin 28 pg (25-35) Mean Corpuscular Hemoglobin Concent 34 g/dL (31-37) Red Cell Distribution Width 12.7 % (11.5-14.5) Platelet Count 216 x10^3/uL (140-400) Neutrophils (%) (Auto) 78 % (31-73) Lymphocytes (%) (Auto) 15 % (24-48) Monocytes (%) (Auto) 6 % (0-9) Eosinophils (%) (Auto) 0 % (0-3) Basophils (%) (Auto) 0 % (0-3) Neutrophils # (Auto) 8.2 x10^3uL (1.8-7.7) Lymphocytes # (Auto) 1.6 x10^3/uL (1.0-4.8) Monocytes # (Auto) 0.6 x10^3/uL (0.0-1.1) Eosinophils # (Auto) 0.0 x10^3/uL (0.0-0.7) Basophils # (Auto) 0.0 x10^3/uL (0.0-0.2) Erythrocyte Sedimentation Rate 2 (0-15) Prothrombin Time 12.7 SEC (11.7-14.0) Prothromb Time International Ratio 1.0 (0.8-1.1) Sodium Level 138 mmol/L (136-145) 138 mmol/L (136-145) Potassium Level 4.2 mmol/L (3.5-5.1) 4.3 mmol/L (3.5-5.1) Chloride Level 103 mmol/L (98-107) 103 mmol/L (98-107) Carbon Dioxide Level 26 mmol/L (21-32) 24 mmol/L (21-32) Anion Gap 9 (6-14) 11 (6-14) Blood Urea Nitrogen 10 mg/dL (8-26) 15 mg/dL (8-26) Creatinine 0.8 mg/dL (0.7-1.3) 0.9 mg/dL (0.7-1.3) Estimated GFR (Cockcroft-Gault) 112.8 98.4 Glucose Level 108 mg/dL (70-99) 177 mg/dL (70-99) Calcium Level 9.3 mg/dL (8.5-10.1) 9.3 mg/dL (8.5-10.1) Magnesium Level 1.9 mg/dL (1.8-2.4) Total Bilirubin 1.0 mg/dL (0.2-1.0) Direct Bilirubin 0.2 mg/dL (0.0-0.2) Aspartate Amino Transf (AST/SGOT) 10 U/L (15-37) Alanine Aminotransferase (ALT/SGPT) 21 U/L (16-63) Alkaline Phosphatase 75 U/L (46-116) Creatine Kinase 33 U/L (39-308) Creatine Kinase MB (Mass) < 0.5 ng/mL (0.0-3.6) Creatine Kinase MB Relative Index % (0-4) Troponin I Quantitative < 0.017 ng/mL (0.000-0.055) < 0.017 ng/mL (0.000-0.055) BW-Pth-Z-Type Natriuretic Peptide 233 pg/mL (0-124) Total Protein 7.4 g/dL (6.4-8.2) Albumin 3.9 g/dL (3.4-5.0) Lipase 84 U/L (73-393) Urine Color Yellow Urine Clarity Clear Urine pH 7.0 Urine Specific [place] 1.015 Urine Protein Negative mg/dL (NEG-TRACE) Urine Glucose (UA) Negative mg/dL (NEG) Urine Ketones (Stick) Negative mg/dL (NEG) Urine Blood Negative (NEG) Urine Nitrite Negative (NEG) Urine Bilirubin Negative (NEG) Urine Urobilinogen Dipstick 0.2 mg/dL (0.2 mg/dL) Urine Leukocyte Esterase Negative (NEG) Urine RBC 0 /HPF (0-2) Urine WBC 0 /HPF (0-4) Urine Squamous Epithelial Cells None /LPF Urine Bacteria 0 /HPF (0-FEW) Urine Mucus Slight /LPF Urine Opiates Screen Neg (NEG) Urine Methadone Screen Neg (NEG) Urine Barbiturates Neg (NEG) Urine Phencyclidine Screen Neg (NEG) Urine Amphetamine/Methamphetamine Neg (NEG) Urine Benzodiazepines Screen Neg (NEG) Urine Cocaine Screen Neg (NEG) Urine Cannabinoids Screen Neg (NEG) Urine Ethyl Alcohol Neg (NEG) Test 08/03/16 03:20 08/03/16 05:00 Troponin I Quantitative < 0.017 ng/mL (0.000-0.055) White Blood Count 11.0 x10^3/uL (4.0-11.0) Red Blood Count 5.20 x10^6/uL (4.30-5.70) Hemoglobin 14.5 g/dL (13.0-17.5) Hematocrit 43.6 % (39.0-53.0) Mean Corpuscular Volume 84 fL (79-100) Mean Corpuscular Hemoglobin 28 pg (25-35) Mean Corpuscular Hemoglobin Concent 33 g/dL (31-37) Red Cell Distribution Width 12.5 % (11.5-14.5) Platelet Count 233 x10^3/uL (140-400) Neutrophils (%) (Auto) 89 % (31-73) Lymphocytes (%) (Auto) 9 % (24-48) Monocytes (%) (Auto) 1 % (0-9) Eosinophils (%) (Auto) 0 % (0-3) Basophils (%) (Auto) 0 % (0-3) Neutrophils # (Auto) 9.9 x10^3uL (1.8-7.7) Lymphocytes # (Auto) 1.0 x10^3/uL (1.0-4.8) Monocytes # (Auto) 0.1 x10^3/uL (0.0-1.1) Eosinophils # (Auto) 0.0 x10^3/uL (0.0-0.7) Basophils # (Auto) 0.0 x10^3/uL (0.0-0.2) Segmented Neutrophils % 89 % (35-66) Band Neutrophils % 1 % (0-9) Lymphocytes % 10 % (24-48) Platelet Estimate Adequate (ADEQUATE) Physical Exam HEENT: Neck Supple W Full Motion Chest: Symmetric LUNGS: Clear to Auscultation Heart: S1S2, RRR (SR with occasional PACs) Abdomen: Soft N/T Extremities: No Edema, No Calf Tenderness Neurology: alert, oriented, follow commands Assessment Assessment 1. Atypical chest pain: suspect MSK/costochondritis 2. PAFIB: Presently SR but with bouts of atrial flutter with RVR this AM 3. Presyncope: could be anxiety induced but arrhythmia as well. 4. Hx of bicuspid valve/aortic dilatation with mild /AI: repair in 2002. 5. Anxiety: per PCP Recommendations 1. TTE pending today 2. Increase flecainide, completely DC cardizem and continue with metoprolol 3. Ibuprofen PRN 4. ECASA 81 mg for stroke prevention. Possible DC this afternoon. 5. Will arrange for event monitor and will likely need to be seen by EP again as an outpt. KEYSHAWN CABEZAS MD 08/03/16 0748: CARDIO Progress Notes Plan Plan Pt. seen and examined. Agree with above [employer] note. No acute events overnight. I had a long conversation with the patient and his . He seems to be struggling with generalized anxiety disorder I reassured to him that his problem is not life threatening. Will trial flecainde for 1 week, if no improvement, then change to propafenone. If still no improvement, then consider dofetilide and then see EP again for possible ablation. JORGE LUIS DANIELSON APRN Aug 03, 2016 11:00 KEYSHAWN CABEZAS MD Aug 03, 2016 22:46
[2016-08-03 11:12] VITALS: BP 113/65
--- NOTE | 2016-08-03 13:48 | PDOC ---
PROGRESS NOTES Chief Complaint Chief Complaint chest pain, occurs when palipations or PAC/PVC occ irrreg, beats in EKG, otherwise sinus CV eval, now off cardizem, history of Afib RVR admit last year, oct Hx aortic dissection, open surg 2007 at [facility] anxiety, obesity, BMI 31 History of Present Illness History of Present Illness much better this AM, then pain returned Vitals Vitals Vital Signs Date Time Temp Pulse Resp B/P (MAP) Pulse Ox O2 Delivery O2 Flow Rate FiO2 08/03/16 11:31 18 93 Room Air 08/03/16 11:12 97.5 73 113/65 (81) 97.5 Physical Exam General: Alert, Oriented X3, Cooperative Heart: Regular rate (SR with PAC), Normal S1, Normal S2, Other (diffuse systolic murmur /6) Lungs: Clear Abdomen: Normal bowel sounds, Soft Extremities: No clubbing, No edema, Normal pulses Skin: No rashes, No breakdown, No significant lesion Labs LABS Laboratory Tests Test 08/02/16 20:30 08/03/16 03:10 08/03/16 03:20 08/03/16 05:00 Troponin I Quantitative < 0.017 ng/mL (0.000-0.055) < 0.017 ng/mL (0.000-0.055) Sodium Level 138 mmol/L (136-145) Potassium Level 4.3 mmol/L (3.5-5.1) Chloride Level 103 mmol/L (98-107) Carbon Dioxide Level 24 mmol/L (21-32) Anion Gap 11 (6-14) Blood Urea Nitrogen 15 mg/dL (8-26) Creatinine 0.9 mg/dL (0.7-1.3) Estimated GFR (Cockcroft-Gault) 98.4 Glucose Level 177 mg/dL (70-99) Calcium Level 9.3 mg/dL (8.5-10.1) White Blood Count 11.0 x10^3/uL (4.0-11.0) Red Blood Count 5.20 x10^6/uL (4.30-5.70) Hemoglobin 14.5 g/dL (13.0-17.5) Hematocrit 43.6 % (39.0-53.0) Mean Corpuscular Volume 84 fL (79-100) Mean Corpuscular Hemoglobin 28 pg (25-35) Mean Corpuscular Hemoglobin Concent 33 g/dL (31-37) Red Cell Distribution Width 12.5 % (11.5-14.5) Platelet Count 233 x10^3/uL (140-400) Neutrophils (%) (Auto) 89 % (31-73) Lymphocytes (%) (Auto) 9 % (24-48) Monocytes (%) (Auto) 1 % (0-9) Eosinophils (%) (Auto) 0 % (0-3) Basophils (%) (Auto) 0 % (0-3) Neutrophils # (Auto) 9.9 x10^3uL (1.8-7.7) Lymphocytes # (Auto) 1.0 x10^3/uL (1.0-4.8) Monocytes # (Auto) 0.1 x10^3/uL (0.0-1.1) Eosinophils # (Auto) 0.0 x10^3/uL (0.0-0.7) Basophils # (Auto) 0.0 x10^3/uL (0.0-0.2) Segmented Neutrophils % 89 % (35-66) Band Neutrophils % 1 % (0-9) Lymphocytes % 10 % (24-48) Platelet Estimate Adequate (ADEQUATE) Assessment and Plan Assessmemt and Plan Problems Medical Problems: (1) Chest pain Status: Acute Problems: Comment Review of Relevant I have reviewed the following items peg (where applicable) has been applied. Labs Laboratory Tests Test 08/02/16 11:20 08/02/16 13:12 08/02/16 20:30 08/03/16 03:10 White Blood Count 10.5 x10^3/uL (4.0-11.0) Red Blood Count 5.12 x10^6/uL (4.30-5.70) Hemoglobin 14.5 g/dL (13.0-17.5) Hematocrit 42.4 % (39.0-53.0) Mean Corpuscular Volume 83 fL (79-100) Mean Corpuscular Hemoglobin 28 pg (25-35) Mean Corpuscular Hemoglobin Concent 34 g/dL (31-37) Red Cell Distribution Width 12.7 % (11.5-14.5) Platelet Count 216 x10^3/uL (140-400) Neutrophils (%) (Auto) 78 % (31-73) Lymphocytes (%) (Auto) 15 % (24-48) Monocytes (%) (Auto) 6 % (0-9) Eosinophils (%) (Auto) 0 % (0-3) Basophils (%) (Auto) 0 % (0-3) Neutrophils # (Auto) 8.2 x10^3uL (1.8-7.7) Lymphocytes # (Auto) 1.6 x10^3/uL (1.0-4.8) Monocytes # (Auto) 0.6 x10^3/uL (0.0-1.1) Eosinophils # (Auto) 0.0 x10^3/uL (0.0-0.7) Basophils # (Auto) 0.0 x10^3/uL (0.0-0.2) Erythrocyte Sedimentation Rate 2 (0-15) Prothrombin Time 12.7 SEC (11.7-14.0) Prothromb Time International Ratio 1.0 (0.8-1.1) Sodium Level 138 mmol/L (136-145) 138 mmol/L (136-145) Potassium Level 4.2 mmol/L (3.5-5.1) 4.3 mmol/L (3.5-5.1) Chloride Level 103 mmol/L (98-107) 103 mmol/L (98-107) Carbon Dioxide Level 26 mmol/L (21-32) 24 mmol/L (21-32) Anion Gap 9 (6-14) 11 (6-14) Blood Urea Nitrogen 10 mg/dL (8-26) 15 mg/dL (8-26) Creatinine 0.8 mg/dL (0.7-1.3) 0.9 mg/dL (0.7-1.3) Estimated GFR (Cockcroft-Gault) 112.8 98.4 Glucose Level 108 mg/dL (70-99) 177 mg/dL (70-99) Calcium Level 9.3 mg/dL (8.5-10.1) 9.3 mg/dL (8.5-10.1) Magnesium Level 1.9 mg/dL (1.8-2.4) Total Bilirubin 1.0 mg/dL (0.2-1.0) Direct Bilirubin 0.2 mg/dL (0.0-0.2) Aspartate Amino Transf (AST/SGOT) 10 U/L (15-37) Alanine Aminotransferase (ALT/SGPT) 21 U/L (16-63) Alkaline Phosphatase 75 U/L (46-116) Creatine Kinase 33 U/L (39-308) Creatine Kinase MB (Mass) < 0.5 ng/mL (0.0-3.6) Creatine Kinase MB Relative Index % (0-4) Troponin I Quantitative < 0.017 ng/mL (0.000-0.055) < 0.017 ng/mL (0.000-0.055) GA-Tok-T-Type Natriuretic Peptide 233 pg/mL (0-124) Total Protein 7.4 g/dL (6.4-8.2) Albumin 3.9 g/dL (3.4-5.0) Lipase 84 U/L (73-393) Urine Color Yellow Urine Clarity Clear Urine pH 7.0 Urine Specific [place] 1.015 Urine Protein Negative mg/dL (NEG-TRACE) Urine Glucose (UA) Negative mg/dL (NEG) Urine Ketones (Stick) Negative mg/dL (NEG) Urine Blood Negative (NEG) Urine Nitrite Negative (NEG) Urine Bilirubin Negative (NEG) Urine Urobilinogen Dipstick 0.2 mg/dL (0.2 mg/dL) Urine Leukocyte Esterase Negative (NEG) Urine RBC 0 /HPF (0-2) Urine WBC 0 /HPF (0-4) Urine Squamous Epithelial Cells None /LPF Urine Bacteria 0 /HPF (0-FEW) Urine Mucus Slight /LPF Urine Opiates Screen Neg (NEG) Urine Methadone Screen Neg (NEG) Urine Barbiturates Neg (NEG) Urine Phencyclidine Screen Neg (NEG) Urine Amphetamine/Methamphetamine Neg (NEG) Urine Benzodiazepines Screen Neg (NEG) Urine Cocaine Screen Neg (NEG) Urine Cannabinoids Screen Neg (NEG) Urine Ethyl Alcohol Neg (NEG) Test 08/03/16 03:20 08/03/16 05:00 Troponin I Quantitative < 0.017 ng/mL (0.000-0.055) White Blood Count 11.0 x10^3/uL (4.0-11.0) Red Blood Count 5.20 x10^6/uL (4.30-5.70) Hemoglobin 14.5 g/dL (13.0-17.5) Hematocrit 43.6 % (39.0-53.0) Mean Corpuscular Volume 84 fL (79-100) Mean Corpuscular Hemoglobin 28 pg (25-35) Mean Corpuscular Hemoglobin Concent 33 g/dL (31-37) Red Cell Distribution Width 12.5 % (11.5-14.5) Platelet Count 233 x10^3/uL (140-400) Neutrophils (%) (Auto) 89 % (31-73) Lymphocytes (%) (Auto) 9 % (24-48) Monocytes (%) (Auto) 1 % (0-9) Eosinophils (%) (Auto) 0 % (0-3) Basophils (%) (Auto) 0 % (0-3) Neutrophils # (Auto) 9.9 x10^3uL (1.8-7.7) Lymphocytes # (Auto) 1.0 x10^3/uL (1.0-4.8) Monocytes # (Auto) 0.1 x10^3/uL (0.0-1.1) Eosinophils # (Auto) 0.0 x10^3/uL (0.0-0.7) Basophils # (Auto) 0.0 x10^3/uL (0.0-0.2) Segmented Neutrophils % 89 % (35-66) Band Neutrophils % 1 % (0-9) Lymphocytes % 10 % (24-48) Platelet Estimate Adequate (ADEQUATE) Laboratory Tests Test 08/02/16 20:30 08/03/16 03:10 08/03/16 03:20 08/03/16 05:00 Troponin I Quantitative < 0.017 ng/mL (0.000-0.055) < 0.017 ng/mL (0.000-0.055) Sodium Level 138 mmol/L (136-145) Potassium Level 4.3 mmol/L (3.5-5.1) Chloride Level 103 mmol/L (98-107) Carbon Dioxide Level 24 mmol/L (21-32) Anion Gap 11 (6-14) Blood Urea Nitrogen 15 mg/dL (8-26) Creatinine 0.9 mg/dL (0.7-1.3) Estimated GFR (Cockcroft-Gault) 98.4 Glucose Level 177 mg/dL (70-99) Calcium Level 9.3 mg/dL (8.5-10.1) White Blood Count 11.0 x10^3/uL (4.0-11.0) Red Blood Count 5.20 x10^6/uL (4.30-5.70) Hemoglobin 14.5 g/dL (13.0-17.5) Hematocrit 43.6 % (39.0-53.0) Mean Corpuscular Volume 84 fL (79-100) Mean Corpuscular Hemoglobin 28 pg (25-35) Mean Corpuscular Hemoglobin Concent 33 g/dL (31-37) Red Cell Distribution Width 12.5 % (11.5-14.5) Platelet Count 233 x10^3/uL (140-400) Neutrophils (%) (Auto) 89 % (31-73) Lymphocytes (%) (Auto) 9 % (24-48) Monocytes (%) (Auto) 1 % (0-9) Eosinophils (%) (Auto) 0 % (0-3) Basophils (%) (Auto) 0 % (0-3) Neutrophils # (Auto) 9.9 x10^3uL (1.8-7.7) Lymphocytes # (Auto) 1.0 x10^3/uL (1.0-4.8) Monocytes # (Auto) 0.1 x10^3/uL (0.0-1.1) Eosinophils # (Auto) 0.0 x10^3/uL (0.0-0.7) Basophils # (Auto) 0.0 x10^3/uL (0.0-0.2) Segmented Neutrophils % 89 % (35-66) Band Neutrophils % 1 % (0-9) Lymphocytes % 10 % (24-48) Platelet Estimate Adequate (ADEQUATE) Medications Current Medications Nitroglycerin (Nitrostat) 0.4 mg PRN Q5MIN PRN SL CP RATING > 1/10 Last administered on 08/02/16t 13:28; Start 08/02/16 at 11:00; Stop 08/03/16 at 10:59 ; Status DC Morphine Sulfate 2 mg PRN Q15MIN PRN IV/SQ PAIN GREATER THAN 3/10; Start at 11:00; Stop 08/03/16 at 10:59; Status UNV Ondansetron HCl (Zofran) 4 mg 1X ONCE IV Last administered on 08/02/16 14:03 ; Start 08/02/16 at 13:00; Stop 08/02/16 at 13:06; Status DC Fentanyl Citrate (Fentanyl 2ml Vial) 50 mcg PRN Q15MIN PRN IV PAIN GREATER THAN 3/10 Last administered on 08/03/16 00:08; Start 08/02/16 at 13:00; Stop at 12:59; Status DC Iohexol (Omnipaque 300 Mg/ml) 75 ml 1X ONCE IV Last administered on 08/02/16 14:33; Start 08/02/16 at 14:30; Stop 08/02/16 at 14:31; Status DC Ondansetron HCl (Zofran) 4 mg PRN Q8HRS PRN IV NAUSEA/VOMITING Last administered on 08/03/16 06:10; Start 08/02/16 at 14:30; Stop 08/03/16 at 14:29 Fentanyl Citrate (Fentanyl 2ml Vial) 50 mcg PRN Q1HR PRN IV PAIN Last administered on 08/03/16 11:01; Start 08/02/16 at 14:30; Stop 08/03/16 at 14:29 Lidocaine (Lidoderm) 1 patch DAILY TD Last administered on 08/03/16 10:02; Start 08/02/16 at 16:00 Methylprednisolone Sodium Succinate (SOLU-Medrol 125MG VIAL) 125 mg 1X ONCE IV Last administered on 08/02/16 15:54; Start 08/02/16 at 15:30; Stop 08/02/16 at 15:33; Status DC Diltiazem HCl (Cardizem 24hr Cd) 120 mg DAILY PO ; Start 08/02/16 at 16:00; Stop 08/02/16 at 21:25; Status DC Pantoprazole Sodium (Protonix) 40 mg DAILYAC PO Last administered on 08/03/16 10:00; Start 08/02/16 at 16:30 Aspirin (Ecotrin) 81 mg DAILYWBKFT PO Last administered on 08/03/16 09:59; Start 08/02/16 at 16:00 Ibuprofen (Motrin) 400 mg PRN Q6HRS PRN PO INFLAMMATION Last administered on 10:14; Start 08/02/16 at 15:30 Sodium Chloride 1,000 ml @ 75 mls/hr 1X ONCE IV Last administered on 16:30; Start 08/02/16 at 16:00; Stop 08/03/16 at 05:19; Status DC Famotidine (Pepcid) 20 mg 1X ONCE IVP Last administered on 08/02/16 17:30; Start 08/02/16 at 16:30; Stop 08/02/16 at 16:31; Status DC Lorazepam (Ativan) 1 mg PRN Q6HRS PRN PO ANXIETY / AGITATION Last administered on 08/03/16 06:16; Start 08/02/16 at 17:00 Flecainide Acetate (Tambocor) 50 mg Q12HR PO Last administered on 08/03/16 10: 01; Start 08/02/16 at 21:30; Stop 08/03/16 at 10:56; Status DC Metoprolol Tartrate (Lopressor) 25 mg BID PO Last administered on 08/03/16 10: 03; Start 08/03/16 at 09:00 Flecainide Acetate (Tambocor) 100 mg Q12HR PO ; Start 08/03/16 at 21:00 Active Scripts Active Ativan (Lorazepam) 0.5 Mg Tablet 0.5 Mg PO BID PRN Reported Pepcid (Famotidine) 20 Mg Tablet 20 Mg PO BID Cardizem Cd (Diltiazem Hcl) 120 Mg Cap.er.24h 120 Mg PO DAILY Aspirin 325 Mg Tablet 1 Tab PO DAILY Vitals/I & O Vital Sign - Last 24 Hours 08/02/16 08/02/16 08/02/16 08/02/16 14:05 14:10 15:04 15:52 Pulse 81 84 Resp 20 12 19 20 B/P (MAP) 109/76 (87) 116/68 (84) Pulse Ox 98 97 97 97 O2 Delivery Room Air Room Air Room Air Room Air 08/02/16 08/02/16 08/02/16 08/02/16 16:00 17:29 19:24 20:03 Temp 97.9 97.9 97.9 97.9 Pulse 72 68 Resp 18 20 18 B/P (MAP) 104/69 (81) 109/50 (69) Pulse Ox 72 O2 Delivery Room Air Room Air Room Air Room Air 08/02/16 08/02/16 08/02/16 08/03/16 20:12 21:55 22:49 00:08 Temp 97.6 97.6 Pulse 68 68 Resp 18 18 18 B/P (MAP) 109/50 109/62 (78) Pulse Ox 72 93 93 O2 Delivery Room Air Room Air Room Air 08/03/16 08/03/16 08/03/16 08/03/16 00:45 03:00 03:32 06:10 Temp 97.7 97.7 Pulse 72 Resp 18 16 18 18 B/P (MAP) 119/72 (88) Pulse Ox 93 93 93 93 O2 Delivery Room Air Room Air Room Air Room Air 08/03/16 08/03/16 08/03/16 08/03/16 07:00 08:00 10:01 10:03 Temp 96.4 96.4 Pulse 58 64 64 Resp 18 B/P (MAP) 109/60 (76) 109/60 109/60 Pulse Ox 94 O2 Delivery Room Air Room Air 08/03/16 08/03/16 08/03/16 11:01 11:12 11:31 Temp 97.5 97.5 Pulse 73 Resp 20 18 18 B/P (MAP) 113/65 (81) Pulse Ox 94 93 93 O2 Delivery Room Air Room Air Room Air Intake and Output 08/02/16 08/02/16 08/03/16 15:00 23:00 07:00 Intake Total 820 ml 900 ml Balance 820 ml 900 ml WARREN HERNANDEZ MD Aug 03, 2016 13:48
--- NOTE | 2016-08-03 14:14 | CARD ---
APPROVED REPORT EXAM: Two-dimensional and M-mode echocardiogram with Doppler and color Doppler. Other Information Quality : Good INDICATION Aortic Valve Disease History of bicuspid aortic valve repair 2008 2D DIMENSIONS RVDd3.4 (2.9-3.5cm)Left Atrium(2D)3.8 (1.6-4.0cm) IVSd1.1 (0.7-1.1cm)Aortic Root(2D)3.2 (2.0-3.7cm) LVDd5.2 (3.9-5.9cm)LVOT Diameter2.2 (1.8-2.4cm) PWd1.1 (0.7-1.1cm)LVDs3.1 (2.5-4.0cm) FS (%) 39.8 %SV90.6 ml LVEF(%)60.0 (>50%) Aortic Valve AoV Peak David.347.9cm/sAoV VTI77.4cm AO Peak GR.48.4mmHgLVOT Peak David.95.6cm/s AO Mean GR.32mmHgAVA (VMAX)1.09cm2 VIOLETA (VTI)1.30cm2 Mitral Valve MV E Jtusshcd990.4cm/sMV DECEL NOFI561pb MV A Lydggewg85.6cm/sE/A Ratio2.3 Tricuspid Valve TR P. Phlibvnh622yc/sRAP GIYFUTSS6rsUc TR Peak Gr.39cyTqXOKB72klDx Pulmonary Vein S1 Hyklcbuh96.2cm/sD2 Xqvmybok31.0cm/s LEFT VENTRICLE The left ventricle is normal size. There is normal left ventricular wall thickness. The left ventricu lar systolic function is normal and the ejection fraction is within normal range. The Ejection Fracti on is 55-60%. There is normal LV segmental wall motion. Septal motion suggestive of prior cardiac patrick raúl. Transmitral Doppler flow pattern is normal for age. RIGHT VENTRICLE The right ventricle is normal size. The right ventricular systolic function is normal. ATRIA The left atrium size is normal. The right atrium size is normal. The interatrial septum is intact wit h no evidence for an atrial septal defect or patent foramen ovale as noted on 2-D or Doppler imaging. AORTIC VALVE The arotic valve is not well visualized but appears to be bicuspid. Doppler and Color Flow revealed t race aortic regurgitation. Calculated aortic valve area is 1.3 cm2 with maximum pressure gradient of 48 mmHg and mean pressure gradient of 32 mmHg. Doppler and color-flow analysis revealed moderate aort ic stenosis. MITRAL VALVE The mitral valve is normal in structure and function. There is no evidence of mitral valve prolapse. There is no mitral valve stenosis. Doppler and Color-flow revealed trace to mild mitral regurgitation . TRICUSPID VALVE The tricuspid valve is normal in structure and function. Doppler and Color Flow revealed trace to mil d tricuspid regurgitation. The PA pressure was estimated at 15 mmHg. There is no tricuspid valve sten osis. PULMONIC VALVE Doppler and Color Flow revealed mild pulmonic valvular regurgitation. There is no pulmonic valvular s tenosis. GREAT VESSELS The aortic root is normal in size. The ascending aorta is normal in size. The IVC is normal in size a nd collapses >50% with inspiration. PERICARDIAL EFFUSION There is no evidence of significant pericardial effusion. Critical Notification Critical Value: No <Conclusion> The left ventricular systolic function is normal and the ejection fraction is within normal range. Th e Ejection Fraction is 55-60%. There is normal LV segmental wall motion. Septal motion suggestive of prior cardiac surgery. Calculated aortic valve area is 1.3 cm2 with maximum pressure gradient of 48 mmHg and mean pressure g radient of 32 mmHg. Doppler and color-flow analysis revealed moderate aortic stenosis. The arotic valve is not well visualized but appears to be bicuspid.
[2016-08-03 15:13] VITALS: BP 101/53
[2016-08-03] MEDS ORDERED: METOPROLOL TART IMMED RELEASE 25 MG TABLET. PO ONE (18:00)
[2016-08-03 19:00] VITALS: BP 109/58
[2016-08-03] MEDS ORDERED: ZOLPIDEM 5 MG TABLET. PO PRN (19:45)
--- NOTE | 2016-08-03 20:56 | EKG ---
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
[2016-08-03 23:00] VITALS: BP 93/52
[2016-08-03] MEDS ORDERED: diphenhydrAMINE HCL 25 MG CAPSULE PO ONE (23:00)
[2016-08-04 03:00] VITALS: BP 98/43
[2016-08-04 07:00] VITALS: BP_SYST 103; BP_SYST 88; BP_DIAS 38; BP_DIAS 54
[2016-08-04] MEDS: PANTOPRAZOLE 40 MG TABLET.DR. PO SCH (07:53)
[2016-08-04] MEDS: FLECAINIDE ACETATE 50 MG TABLET. PO SCH ×2 (07:53→08:08)
[2016-08-04] MEDS: ASPIRIN ENTERIC COATED 81 MG TABLET.DR. PO SCH (07:53)
[2016-08-04] MEDS: METOPROLOL TART IMMED RELEASE 25 MG TABLET. PO SCH (07:55)
[2016-08-04] MEDS: LIDOCAINE (700MG/PATCH) PATCH. TD SCH (07:55)
[2016-08-04 09:00] VITALS: BP 103/54
[2016-08-04] MEDS ORDERED: METOPROLOL TART IMMED RELEASE 25 MG TABLET. PO SCH (09:00)
[2016-08-04] MEDS ORDERED: METO25TA4 PO (11:06)
--- NOTE | 2016-08-04 16:07 | PDOC3 ---
Discharge Summary Visit Information Date of Admission: Aug 02, 2016 Date of Discharge: Aug 04, 2016 Admitting Diagnosis: chest pain Final Diagnosis chest pain, occurs when palipations or PAC/PVC occ irrreg, beats in EKG, history of Afib RVR admit last year, oct Hx aortic dissection, open surg [address] [facility] anxiety, generalized, w. possible depression, manifest as agitation obesity, BMI 31 Problems Medical Problems: (1) Chest pain Status: Acute Brief Hospital Course Allergies Allergies Coded Allergies Type Severity Reaction Last Updated Verified morphine Allergy Intermediate 08/02/16 Yes Vital Signs Vital Signs Date Time Temp Pulse Resp B/P (MAP) Pulse Ox O2 Delivery O2 Flow Rate FiO2 08/04/16 09:00 53 103/54 08/04/16 08:00 Room Air 08/04/16 07:00 97.5 18 95 97.5 Lab Results Laboratory Tests Test 08/02/16 20:30 08/03/16 03:10 08/03/16 03:20 08/03/16 05:00 Troponin I Quantitative < 0.017 ng/mL (0.000-0.055) < 0.017 ng/mL (0.000-0.055) Sodium Level 138 mmol/L (136-145) Potassium Level 4.3 mmol/L (3.5-5.1) Chloride Level 103 mmol/L (98-107) Carbon Dioxide Level 24 mmol/L (21-32) Anion Gap 11 (6-14) Blood Urea Nitrogen 15 mg/dL (8-26) Creatinine 0.9 mg/dL (0.7-1.3) Estimated GFR (Cockcroft-Gault) 98.4 Glucose Level 177 mg/dL (70-99) Calcium Level 9.3 mg/dL (8.5-10.1) HIV-1 Antibody Non reactive (Non Reactive) White Blood Count 11.0 x10^3/uL (4.0-11.0) Red Blood Count 5.20 x10^6/uL (4.30-5.70) Hemoglobin 14.5 g/dL (13.0-17.5) Hematocrit 43.6 % (39.0-53.0) Mean Corpuscular Volume 84 fL (79-100) Mean Corpuscular Hemoglobin 28 pg (25-35) Mean Corpuscular Hemoglobin Concent 33 g/dL (31-37) Red Cell Distribution Width 12.5 % (11.5-14.5) Platelet Count 233 x10^3/uL (140-400) Neutrophils (%) (Auto) 89 % (31-73) Lymphocytes (%) (Auto) 9 % (24-48) Monocytes (%) (Auto) 1 % (0-9) Eosinophils (%) (Auto) 0 % (0-3) Basophils (%) (Auto) 0 % (0-3) Neutrophils # (Auto) 9.9 x10^3uL (1.8-7.7) Lymphocytes # (Auto) 1.0 x10^3/uL (1.0-4.8) Monocytes # (Auto) 0.1 x10^3/uL (0.0-1.1) Eosinophils # (Auto) 0.0 x10^3/uL (0.0-0.7) Basophils # (Auto) 0.0 x10^3/uL (0.0-0.2) Segmented Neutrophils % 89 % (35-66) Band Neutrophils % 1 % (0-9) Lymphocytes % 10 % (24-48) Platelet Estimate Adequate (ADEQUATE) Brief Hospital Course Mr. Pinto is a 31 old admit with recurrent and intermittent chest pain. Pain when PAC or PVC occurred, and was regular for a time. BP meds changed, rhythm control for prior AFIB DC cardizem, start lowest dose metoprolol Flecanide started 50, increased to 100 BID, sent home with holter monitor, will f/u in clinic with Dr. Caba in one week Discharge Information Condition at Discharge: Improved Follow Up: Weeks Disposition/Orders: D/C to Home Scheduled Aspirin (Aspirin), 1 TAB PO DAILY, (Reported) Famotidine (Pepcid), 20 MG PO BID, (Reported) Metoprolol Tartrate (Metoprolol Tartrate), 12.5 MG PO BID, (Reported) Scheduled PRN Lorazepam (Ativan), 0.5 MG PO BID PRN for ANXIETY Discontinued Medications Diltiazem Hcl (Cardizem Cd), 120 MG PO DAILY, (Reported) WARREN HERNANDEZ MD Aug 04, 2016 16:07
== END 2016-08-04 11:15 | disposition home or self-care (01) ==
LOC: ER 10:56 → 5 NORTH 14:20
PROVIDERS: ADMIT Internal Medicine; ATTEND Internal Medicine
DX: R07.89 Other chest pain (principal); I49.3 Ventricular premature depolarization; I48.91 Unspecified atrial fibrillation; F41.1 Generalized anxiety disorder; I71.00 Dissection of unspecified site of aorta; Z68.31 Body mass index [BMI] 31.0-31.9, adult; E66.9 Obesity, unspecified; E04.1 Nontoxic single thyroid nodule; I20.9 Angina pectoris, unspecified; I48.92 Unspecified atrial flutter; J02.0 Streptococcal pharyngitis; K21.9 Gastro-esophageal reflux disease without esophagitis; Z86.79 Personal history of other diseases of the circulatory system; Z82.49 Family history of ischemic heart disease and other diseases of the circulatory system
CPT/HCPCS: 36415; 71010; 71275; 80048; 80076; 81001; 82553; 83690; 83735; 83880; 84484; 85007; 85027; 85610; 85651; 86703; 93005; 93306; 96361; 96374; 96375; 96376; 99285; G0378; G0481; J2405; J2930; J3010; J7030; Q0163; Q9967; S0028; G0379

== ENCOUNTER 2017-04-13 22:35 | Inpatient (IN) | payer OTHER ==
[2017-04-13] MEDS ORDERED: ACETAMINOPHEN 325 MG TABLET. PO (23:30)
[2017-04-13] MEDS ORDERED: IBUPROFEN 400 MG TABLET. PO (23:30)
[2017-04-13] MEDS ORDERED: ONDANSETRON PF 4 MG/2 ML VIAL. IV (23:30)
[2017-04-13] MEDS: dilTIAZem VIAL 125 MG in IV DEXTROSE 5% 100 ML IV (23:55)
[2017-04-14 06:04] LABS: HEMOGLOBIN 13.6 g/dL (13.0-17.5); PLATELET COUNT 235 x10^3/uL (140-400); WHITE BLOOD COUNT 5.3 x10^3/uL (4.0-11.0)
[2017-04-14 06:23] LABS: ANION GAP 10 (6-14); BLOOD UREA NITROGEN 10 mg/dL (8-26); CALCIUM 9.3 mg/dL (8.5-10.1); CARBON DIOXIDE 27 mmol/L (21-32); CHLORIDE 105 mmol/L (98-107); CREATININE 0.8 mg/dL (0.7-1.3); GFR 112.8; GLUCOSE 103 mg/dL (70-99); MAGNESIUM 2.1 mg/dL (1.8-2.4); POTASSIUM 3.6 mmol/L (3.5-5.1); SODIUM 142 mmol/L (136-145)
[2017-04-14 06:39] LABS: THYROID STIM HORMONE (TSH) 1.785 uIU/mL (0.358-3.74)
[2017-04-14] MEDS: METOPROLOL TART IMMED RELEASE 50 MG TABLET. PO ×2 (09:00→21:24)
[2017-04-14] MEDS: FLECAINIDE ACETATE 50 MG TABLET. PO (09:00)
[2017-04-14] MEDS: ASPIRIN CHEWABLE 81 MG TABLET. PO (09:28)
[2017-04-14] MEDS: PANTOPRAZOLE 40 MG TABLET.DR. PO (09:28)
[2017-04-14 11:55] LABS: BARBITURATES NEG (NEG); BENZODIAZEPINES NEG (NEG); CANNABINOIDS NEG (NEG); COCAINE NEG (NEG); METHADONE NEG (NEG); OPIATES NEG (NEG); PHENCYCLIDINE NEG (NEG)
[2017-04-14 11:56] LABS: AMPHETAMINE/METHAMPHETAMINE NEG (NEG); ETHANOL, URINE NEG (NEG)
[2017-04-14] MEDS: DRONEDARONE HCL 400 MG TABLET PO (17:04)
[2017-04-14] MEDS: ENOXAPARIN 40 MG/0.4 ML SYRINGE. SQ (17:05)
[2017-04-14] MEDS: fentaNYL PF VIAL 100 MCG/2 ML VIAL IV ×3 (18:45→21:35)
[2017-04-14] MEDS: dilTIAZem VIAL 125 MG in IV DEXTROSE 5% 100 ML IV (18:45)
[2017-04-14] MEDS: AMIODARONE 150 MG in IV DEXTROSE 5% 100 ML IV (19:00)
[2017-04-14] MEDS: ALPRAZolam 0.5 MG TABLET PO (19:14)
[2017-04-14] MEDS ORDERED: fentaNYL PF VIAL 100 MCG/2 ML VIAL IM (19:15)
[2017-04-14] MEDS: AMIODARONE 900 MG in IV DEXTROSE 5% 500 ML IV (19:23)
[2017-04-14] MEDS: ZOLPIDEM 5 MG TABLET. PO (21:25)
[2017-04-15 04:55] LABS: ADD MAN DIFF? NO
[2017-04-15 04:59] LABS: BASO % 1 % (0-3); EOS # 0.1 x10^3/uL (0.0-0.7); EOS % 1 % (0-3); HEMATOCRIT 40.7 % (39.0-53.0); LYMPH # 2.1 x10^3/uL (1.0-4.8); LYMPH % 33 % (24-48); MEAN CORPUSCULAR HEMOGLOBIN 29 pg (25-35); MEAN CORPUSCULAR HGB CONC 34 g/dL (31-37); MEAN CORPUSCULAR VOLUME 84 fL (79-100); MONO # 0.5 x10^3/uL (0.0-1.1); MONO % 8 % (0-9); NEUT # 3.8 x10^3uL (1.8-7.7); NEUT % 59 % (31-73); PLATELET COUNT 238 x10^3/uL (140-400); RED BLOOD COUNT 4.84 x10^6/uL (4.30-5.70); RED CELL DISTRIBUTION WIDTH 12.8 % (11.5-14.5); WHITE BLOOD COUNT 6.5 x10^3/uL (4.0-11.0)
[2017-04-15 05:56] LABS: ANION GAP 9 (6-14); BLOOD UREA NITROGEN 11 mg/dL (8-26); CALCIUM 9.3 mg/dL (8.5-10.1); CARBON DIOXIDE 26 mmol/L (21-32); CHLORIDE 105 mmol/L (98-107); CREATININE 0.9 mg/dL (0.7-1.3); GFR 98.4; GLUCOSE 105 mg/dL (70-99); POTASSIUM 3.5 mmol/L (3.5-5.1); SODIUM 140 mmol/L (136-145)
[2017-04-15] MEDS: DRONEDARONE HCL 400 MG TABLET PO (08:00)
[2017-04-15] MEDS: METOPROLOL TART IMMED RELEASE 50 MG TABLET. PO ×2 (09:00→12:00)
[2017-04-15] MEDS: ASPIRIN CHEWABLE 81 MG TABLET. PO (09:15)
[2017-04-15] MEDS: PANTOPRAZOLE 40 MG TABLET.DR. PO (09:15)
[2017-04-15] MEDS ORDERED: POLYETHYLENE GLYCOL 3350 17 GM PACKET. PO (12:00)
[2017-04-15] MEDS: AMIODARONE HCL 200 MG TABLET. PO (12:00)
[2017-04-15] MEDS: ALPRAZolam 0.5 MG TABLET PO (16:22)
== END 2017-04-15 17:00 | disposition short-term general hospital (02) | DRG 310 ==
LOC: 2 NORTH 22:35
DX: I47.1 Supraventricular tachycardia (principal); I48.91 Unspecified atrial fibrillation; E66.9 Obesity, unspecified; F10.20 Alcohol dependence, uncomplicated; R55 Syncope and collapse; F41.1 Generalized anxiety disorder; I35.0 Nonrheumatic aortic (valve) stenosis; G47.00 Insomnia, unspecified; K59.00 Constipation, unspecified; Z82.49 Family history of ischemic heart disease and other diseases of the circulatory system; I49.3 Ventricular premature depolarization; Z88.5 Allergy status to narcotic agent; Z68.31 Body mass index [BMI] 31.0-31.9, adult
CPT/HCPCS: 36415; 80048; 80307; 83735; 84443; 85025; 85027; 93005; 93306; J0282; J1650; J3010; J3490

== ENCOUNTER 2017-05-23 11:02 | Emergency (ER) | payer OTHER ==
[2017-05-23 11:51] LABS: ADD MAN DIFF? NO
[2017-05-23 11:58] LABS: BASO % 1 % (0-3); EOS % 1 % (0-3); HEMATOCRIT 45.4 % (39.0-53.0); HEMOGLOBIN 15.6 g/dL (13.0-17.5); LYMPH # 2.1 x10^3/uL (1.0-4.8); LYMPH % 43 % (24-48); MEAN CORPUSCULAR HEMOGLOBIN 29 pg (25-35); MEAN CORPUSCULAR HGB CONC 34 g/dL (31-37); MEAN CORPUSCULAR VOLUME 84 fL (79-100); MONO # 0.3 x10^3/uL (0.0-1.1); MONO % 6 % (0-9); NEUT # 2.3 x10^3uL (1.8-7.7); NEUT % 49 % (31-73); PLATELET COUNT 226 x10^3/uL (140-400); RED BLOOD COUNT 5.38 x10^6/uL (4.30-5.70); RED CELL DISTRIBUTION WIDTH 12.9 % (11.5-14.5); WHITE BLOOD COUNT 4.7 x10^3/uL (4.0-11.0)
[2017-05-23] MEDS: KETOROLAC 30 MG/ML INJ. IV (12:03)
[2017-05-23 12:05] LABS: ANION GAP 9 (6-14); BLOOD UREA NITROGEN 14 mg/dL (8-26); BUN/CREATININE RATIO 16 (6-20); CALCIUM 9.4 mg/dL (8.5-10.1); CARBON DIOXIDE 27 mmol/L (21-32); CHLORIDE 104 mmol/L (98-107); CREATININE 0.9 mg/dL (0.7-1.3); GFR 97.8; GLUCOSE 106 mg/dL (70-99); POTASSIUM 4.3 mmol/L (3.5-5.1); SODIUM 140 mmol/L (136-145)
[2017-05-23 12:11] LABS: ALBUMIN 4.1 g/dL (3.4-5.0); ALBUMIN/GLOBULIN RATIO 1.1 (1.0-1.7); ALK PHOS 76 U/L (46-116); ALT (SGPT) 29 U/L (16-63); AST (SGOT) 13 U/L (15-37); TOTAL BILIRUBIN 0.6 mg/dL (0.2-1.0); TOTAL PROTEIN 7.7 g/dL (6.4-8.2)
[2017-05-23 12:20] LABS: D-DIMER < 0.27 ug/mlFEU (0.00-0.50)
== END 2017-05-23 13:04 | disposition home or self-care (01) ==
LOC: ER 11:02
DX: R07.89 Other chest pain (principal); I48.0 Paroxysmal atrial fibrillation; F17.220 Nicotine dependence, chewing tobacco, uncomplicated; I47.1 Supraventricular tachycardia; Z87.01 Personal history of pneumonia (recurrent); Z79.899 Other long term (current) drug therapy; Z88.5 Allergy status to narcotic agent; W06.XXXA Fall from bed, initial encounter; Y93.89 Activity, other specified; Y92.89 Other specified places as the place of occurrence of the external cause; Y99.8 Other external cause status
CPT/HCPCS: 36415; 71046; 80053; 85025; 85379; 93005; 96374; 99285-25; J1885